=== PATIENT | male | born 1990 | race Caucasian/White ===

== ENCOUNTER 2017-10-28 12:10 | Emergency (ER) | payer SELFPAY ==
[~2017-10-28] VITALS: Ht 175.3 cm; Wt 68.0 kg
[2017-10-28] MEDS ORDERED: SODIUM CHLORIDE 0.9% 1,000 ML IV ONE (12:24)
[2017-10-28] MEDS ORDERED: SODIUM CHLORIDE 0.9% 1,000 ML IVB ONE (12:24)
[2017-10-28] MEDS: THIAMINE HCL 100 MG/ML 2ML VIAL IV ONE ×2 (12:30→12:33)
[2017-10-28 12:47] LABS: Basophils # (auto) 0 uL; Basophils % (auto) 0.4 % (0.0-2.0); Eosinophils # (auto) 0.1 uL; Eosinophils % (auto) 1.2 % (0.0-7.0); Hemoglobin 15.8 g/dL (13.5-17.5); Lymphocytes # (auto) 1.8 uL; Lymphocytes % (auto) 30.9 % (10.0-50.0); Mean Corpuscular Hemoglobin 33.3 pg (28.0-32.0); Mean Corpuscular Hgb Conc. 34.3 g/dL (32.0-36.0); Mean Corpuscular Volume 97.3 fL (80.0-100.0); Monocytes # (auto) 0.4 uL; Monocytes % (auto) 7.1 % (0.0-12.0); Neutrophils # (auto) 3.5 uL; Neutrophils % (auto) 60.4 % (37.0-80.0); Nucleated Red Blood Cells % 0.1 %; Platelet Count (auto) 314 10^3/uL (140-450); Red Blood Cells 4.73 10^6/uL (4.5-5.90); Red Cell Distribution Width 13.2 % (11.8-14.3); White Blood Cell 5.8 10^3/uL (4.4-10.8)
[2017-10-28 13:11] LABS: Albumin 4.1 g/dL (3.4-5.0); BUN/Creatinine Ratio 10.8; Bilirubin, Total 0.3 mg/dL (0.2-1.0); Calcium 8.4 mg/dL (8.5-10.1); Potassium 3.7 mmol/L (3.5-5.1); Total Protein 7.5 g/dL (6.4-8.2)
[2017-10-28] MEDS ORDERED: THIAMINE INJ 100 MG, MULTIPLE VITAMIN 10 ML, FOLIC ACID 1 MG, MAGNESIUM SULF SDV 50% 8 ... IV SCH ×5 (16:45)
[2017-10-28 17:15] VITALS: BP 121/75
== END 2017-10-28 21:44 | disposition left against medical advice (07) ==
LOC: ER 12:10 → EDBD 12:10 → ER 21:44
DX: G92 Toxic encephalopathy (principal); F10.120 Alcohol abuse with intoxication, uncomplicated
CPT/HCPCS: 36415; 70450; 71045; 80053; 80320; 85025; 96361; 96365; 96366; 99285; J3411; J3475; J7030

== ENCOUNTER 2017-11-12 11:28 | Emergency (ER) | payer SELFPAY ==
[~2017-11-12] VITALS: Ht 170.2 cm; Wt 63.5 kg
[2017-11-12] MEDS ORDERED: SODIUM CHLORIDE 0.9% 1,000 ML IVB ONE (11:43)
[2017-11-12 12:34] LABS: Basophils # (auto) 0 uL; Basophils % (auto) 0.2 % (0.0-2.0); Eosinophils # (auto) 0.1 uL; Eosinophils % (auto) 1.1 % (0.0-7.0); Hematocrit 47.1 % (41.0-53.0); Hemoglobin 15.9 g/dL (13.5-17.5); Lymphocytes # (auto) 2.5 uL; Lymphocytes % (auto) 40.7 % (10.0-50.0); Mean Corpuscular Hemoglobin 32.9 pg (28.0-32.0); Mean Corpuscular Hgb Conc. 33.9 g/dL (32.0-36.0); Mean Corpuscular Volume 97.2 fL (80.0-100.0); Monocytes # (auto) 0.3 uL; Monocytes % (auto) 5.7 % (0.0-12.0); Neutrophils # (auto) 3.1 uL; Neutrophils % (auto) 52.3 % (37.0-80.0); Nucleated Red Blood Cells % 0.1 %; Platelet Count (auto) 360 10^3/uL (140-450); Red Blood Cells 4.84 10^6/uL (4.5-5.90)
[2017-11-12 12:48] LABS: Albumin 4.3 g/dL (3.4-5.0); Calcium 8.5 mg/dL (8.5-10.1)
[2017-11-12 12:52] LABS: BUN/Creatinine Ratio 9.4
[2017-11-12 13:05] LABS: Bilirubin, Total 0.4 mg/dL (0.2-1.0); Total Protein 8.3 g/dL (6.4-8.2)
[2017-11-12 14:00] VITALS: BP 112/88
== END 2017-11-12 16:21 | disposition left against medical advice (07) ==
LOC: EDBD 11:28 → ER 11:28
DX: F10.120 Alcohol abuse with intoxication, uncomplicated (principal); Z53.29 Procedure and treatment not carried out because of patient's decision for other reasons
CPT/HCPCS: 36415; 80053; 80320; 85025; 94761; 96360; 96361; 99285; J7030

== ENCOUNTER 2017-12-24 17:20 | Emergency (ER) | payer SELFPAY ==
[~2017-12-24] VITALS: Ht 177.8 cm; Wt 72.6 kg
[2017-12-24] MEDS ORDERED: SODIUM CHLORIDE 0.9% 1,000 ML IV ONE (17:44)
[2017-12-24] MEDS ORDERED: LORazepam 2MG/ML-1ML VIAL IV ONE (18:30)
[2017-12-24 19:03] LABS: Basophils # (auto) 0.1 uL; Eosinophils # (auto) 0.1 uL; Hematocrit 43.6 % (41.0-53.0); Lymphocytes # (auto) 2.9 uL; Lymphocytes % (auto) 43.9 % (10.0-50.0); Mean Corpuscular Hemoglobin 33.5 pg (28.0-32.0); Mean Corpuscular Hgb Conc. 34.3 g/dL (32.0-36.0); Mean Corpuscular Volume 97.8 fL (80.0-100.0); Monocytes # (auto) 0.4 uL; Monocytes % (auto) 5.4 % (0.0-12.0); Neutrophils # (auto) 3.2 uL; Neutrophils % (auto) 47.7 % (37.0-80.0); Nucleated Red Blood Cells % 0.2 %; Platelet Count (auto) 301 10^3/uL (140-450); Red Blood Cells 4.46 10^6/uL (4.5-5.90); Red Cell Distribution Width 12.9 % (11.8-14.3); White Blood Cell 6.7 10^3/uL (4.4-10.8)
[2017-12-24 19:29] LABS: Albumin 4.3 g/dL (3.4-5.0); BUN/Creatinine Ratio 8.6; Bilirubin, Total 0.3 mg/dL (0.2-1.0); Calcium 8.8 mg/dL (8.5-10.1); Total Protein 8.4 g/dL (6.4-8.2)
[2017-12-24 19:30] VITALS: BP 125/68
[2017-12-24 19:32] LABS: Potassium 4.9 mmol/L (3.5-5.1)
== END 2017-12-24 21:03 | disposition home or self-care (01) ==
LOC: EDUNIT# 17:20 → EDBD 17:20 → ER 17:25
DX: F10.120 Alcohol abuse with intoxication, uncomplicated (principal)
CPT/HCPCS: 36415; 80053; 80320; 85025; 94761; 96374; 99284; J2060; J7030

== ENCOUNTER 2018-03-11 14:37 | Inpatient (IN) | payer MEDICAID, OTHER ==
[~2018-03-11] VITALS: Ht 160 cm; Wt 58.6 kg
[2018-03-11 15:23] LABS: Basophils # (auto) 0 uL; Eosinophils # (auto) 0.1 uL; Monocytes # (auto) 0.4 uL; Red Cell Distribution Width 13.3 % (11.8-14.3); White Blood Cell 6.3 10^3/uL (4.4-10.8)
[2018-03-11 15:26] LABS: Basophils % (auto) 0.3 % (0.0-2.0); Eosinophils % (auto) 1.6 % (0.0-7.0); Hematocrit 41.6 % (41.0-53.0); Hemoglobin 14.2 g/dL (13.5-17.5); Lymphocytes # (auto) 1.8 uL; Lymphocytes % (auto) 29.4 % (10.0-50.0); Mean Corpuscular Hemoglobin 34.4 pg (28.0-32.0); Mean Corpuscular Hgb Conc. 34.2 g/dL (32.0-36.0); Mean Corpuscular Volume 100.8 fL (80.0-100.0); Monocytes % (auto) 7.2 % (0.0-12.0); Neutrophils # (auto) 3.8 uL; Neutrophils % (auto) 61.5 % (37.0-80.0); Nucleated Red Blood Cells % 0.2 %; Platelet Count (auto) 311 10^3/uL (140-450); Red Blood Cells 4.13 10^6/uL (4.5-5.90)
[2018-03-11 15:33] LABS: Urine WBC None Seen /hpf (0 - 3)
[2018-03-11 15:43] LABS: Albumin 3.7 g/dL (3.4-5.0); BUN/Creatinine Ratio 8.4; Bilirubin, Total 0.2 mg/dL (0.2-1.0); Calcium 8.3 mg/dL (8.5-10.1); Potassium 3.5 mmol/L (3.5-5.1); Total Protein 7.4 g/dL (6.4-8.2)
[2018-03-11] MEDS ORDERED: SODIUM CHLORIDE 0.9% 1,000 ML IV ONE ×4 (15:56→17:10)
[2018-03-11] MEDS ORDERED: LIDOCAINE 1% (LOCAL ANESTH.) PF 5ml SDV ONE (15:56)
[2018-03-11 16:04] LABS: Amphetamine Screen, Urine NEGATIVE (NEGATIVE); Barbiturate Scree,Urine NEGATIVE (NEGATIVE); Benzodiazephine Screen, Urine NEGATIVE (NEGATIVE); Cannabinoid Screen, Urine NEGATIVE (NEGATIVE); Cocaine Screen, Urine NEGATIVE (NEGATIVE); Opiate Scree,Urine NEGATIVE (NEGATIVE); Phencyclidine Screen, Urine NEGATIVE (NEGATIVE)
[2018-03-11 16:26] LABS: Urine Bacteria NONE SEEN /hpf (None Seen); Urine Blood Negative /uL (Negative); Urine Specific Gravity 1.003 (1.001-1.035)
[2018-03-11] MEDS ORDERED: THIAMINE 100mg/ml INJ (200mg/2ml VIAL) IV ONE (17:15)
[2018-03-11] MEDS: SODIUM CHLORIDE 0.9% 1,000 ML IV SCH (17:43)
[2018-03-11] MEDS ORDERED: NITROGLYCERIN 0.4 MG SL TAB SL PRN (17:45)
[2018-03-11] MEDS ORDERED: MORPHINE SULF INJ 2 MG/ML SYRINGE 1ML IV PRN ×2 (17:45)
[2018-03-11] MEDS ORDERED: LORazepam 2MG/ML-1ML VIAL IV PRN (17:45)
[2018-03-11] MEDS ORDERED: ONDANSETRON HCL 4 MG/2 ML VIAL IV PRN (17:45)
[2018-03-11] MEDS ORDERED: ACETAMINOPHEN 325 MG TAB PO PRN (17:45)
[2018-03-11] MEDS ORDERED: THIAMINE INJ 100 MG, MULTIPLE VITAMIN 10 ML, FOLIC ACID 1 MG, MAGNESIUM SULF SDV 50% 8 ... IV ONE ×5 (17:45)
[2018-03-11] MEDS: GABAPENTIN 300 MG CAP PO SCH (20:49)
[2018-03-11] MEDS: chlordiazePOXIDE HCL 25 MG CAP PO PRN (20:49)
[2018-03-11 22:00] VITALS: BP 108/59
[2018-03-11 23:21] VITALS: BP 108/59
[2018-03-12] MEDS: SODIUM CHLORIDE 0.9% 1,000 ML IV SCH ×2 (00:23→10:23)
[2018-03-12 05:00] VITALS: BP 110/68
[2018-03-12] MEDS: GABAPENTIN 300 MG CAP PO SCH ×2 (05:18→14:00)
[2018-03-12] MEDS: chlordiazePOXIDE HCL 25 MG CAP PO PRN ×2 (05:19→11:47)
[2018-03-12 06:19] LABS: Basophils # (auto) 0 uL; Eosinophils # (auto) 0.1 uL; Lymphocytes # (auto) 1.9 uL; Monocytes # (auto) 0.4 uL; Neutrophils # (auto) 1.6 uL; Red Cell Distribution Width 13.2 % (11.8-14.3)
[2018-03-12 06:23] LABS: Basophils % (auto) 0.4 % (0.0-2.0); Eosinophils % (auto) 2.7 % (0.0-7.0); Hematocrit 39.1 % (41.0-53.0); Hemoglobin 13.4 g/dL (13.5-17.5); Lymphocytes % (auto) 47.5 % (10.0-50.0); Mean Corpuscular Hgb Conc. 34.3 g/dL (32.0-36.0); Neutrophils % (auto) 40.4 % (37.0-80.0); Nucleated Red Blood Cells % 0.1 %; Platelet Count (auto) 236 10^3/uL (140-450); Red Blood Cells 3.83 10^6/uL (4.5-5.90)
[2018-03-12 06:41] LABS: Albumin 3.3 g/dL (3.4-5.0); Calcium 7.6 mg/dL (8.5-10.1); Potassium 4.3 mmol/L (3.5-5.1)
[2018-03-12 06:43] LABS: BUN/Creatinine Ratio 6.8
[2018-03-12 06:45] LABS: Bilirubin, Total 0.3 mg/dL (0.2-1.0); Total Protein 6.3 g/dL (6.4-8.2)
[2018-03-12 09:00] VITALS: BP 111/58
[2018-03-12] MEDS ORDERED: MULTIPLE VITAMIN TAB PO SCH (10:00)
[2018-03-12 13:00] VITALS: BP 123/66
[2018-03-12 15:19] VITALS: BP 123/66
== END 2018-03-12 17:22 | disposition home or self-care (01) | DRG 775 ==
LOC: EDBD 14:37 → ER 14:37 → MERGE 14:38 → TELE 14:38 → TELE-WESTW 20:29
PROVIDERS: ADMIT Internal Medicine; ATTEND Internal Medicine
DX: F10.129 Alcohol abuse with intoxication, unspecified (principal); G92 Toxic encephalopathy; K70.9 Alcoholic liver disease, unspecified; F17.200 Nicotine dependence, unspecified, uncomplicated; Z59.0 Homelessness
CPT/HCPCS: 36415; 70450; 80053; 80307; 80320; 81001; 85025; 93005; 96365; 96366; 96375; J2405

== ENCOUNTER 2018-03-22 19:35 | Emergency (ER) | payer MEDICAID ==
[~2018-03-22] VITALS: Ht 170.2 cm; Wt 61.2 kg
[2018-03-22 20:18] VITALS: BP 146/86
[2018-03-22 21:41] LABS: Basophils # (auto) 0 uL; Basophils % (auto) 0.4 % (0.0-2.0); Eosinophils # (auto) 0.1 uL; Lymphocytes # (auto) 1.9 uL; Monocytes # (auto) 0.7 uL; Nucleated Red Blood Cells % 0.1 %; Red Blood Cells 4.16 10^6/uL (4.5-5.90); White Blood Cell 5.5 10^3/uL (4.4-10.8)
[2018-03-22 21:43] LABS: Eosinophils % (auto) 2.3 % (0.0-7.0); Hematocrit 42.2 % (41.0-53.0); Hemoglobin 14.6 g/dL (13.5-17.5); Lymphocytes % (auto) 34.2 % (10.0-50.0); Mean Corpuscular Hemoglobin 35.1 pg (28.0-32.0); Mean Corpuscular Hgb Conc. 34.6 g/dL (32.0-36.0); Mean Corpuscular Volume 101.5 fL (80.0-100.0); Monocytes % (auto) 12.9 % (0.0-12.0); Neutrophils # (auto) 2.7 uL; Neutrophils % (auto) 50.2 % (37.0-80.0); Platelet Count (auto) 188 10^3/uL (140-450); Red Cell Distribution Width 13.4 % (11.8-14.3)
[2018-03-22 21:54] LABS: Calcium 8.8 mg/dL (8.5-10.1); Potassium 3.6 mmol/L (3.5-5.1)
[2018-03-22 21:56] LABS: BUN/Creatinine Ratio 11.1
[2018-03-22 21:59] LABS: Bilirubin, Total 0.4 mg/dL (0.2-1.0); Total Protein 7.8 g/dL (6.4-8.2)
[2018-03-22 22:02] LABS: Urine WBC None Seen /hpf (0 - 3)
[2018-03-22 22:18] LABS: Urine Bacteria NONE SEEN /hpf (None Seen); Urine Blood Negative /uL (Negative); Urine Specific Gravity 1.002 (1.001-1.035)
[2018-03-22 22:31] LABS: Amphetamine Screen, Urine NEGATIVE (NEGATIVE); Barbiturate Scree,Urine NEGATIVE (NEGATIVE); Benzodiazephine Screen, Urine NEGATIVE (NEGATIVE); Cannabinoid Screen, Urine NEGATIVE (NEGATIVE); Cocaine Screen, Urine NEGATIVE (NEGATIVE); Opiate Scree,Urine NEGATIVE (NEGATIVE); Phencyclidine Screen, Urine NEGATIVE (NEGATIVE)
== END 2018-03-23 02:55 | disposition left against medical advice (07) ==
LOC: ER 19:35
DX: F10.239 Alcohol dependence with withdrawal, unspecified (principal); Z53.21 Procedure and treatment not carried out due to patient leaving prior to being seen by health care provider
CPT/HCPCS: 36415; 80053; 80307; 80320; 81001; 85025

== ENCOUNTER 2018-04-21 07:58 | Emergency (ER) | payer MEDICAID ==
[~2018-04-21] VITALS: Ht 170.2 cm; Wt 61.2 kg
[2018-04-21 08:11] VITALS: BP 152/96
[2018-04-21] MEDS ORDERED: cefTRIAXone SOD 1,000 MG VL IM ONE (10:45)
[2018-04-21] MEDS ORDERED: KETOROLAC TROMETH 60MG/2ML VIAL IM ONE (10:45)
[2018-04-21] MEDS ORDERED: LIDOCAINE 1% HCL (LOCAL ANESTH.) INJ 20ML MDV ONE (10:45)
[2018-04-21] MEDS ORDERED: cefTRIAXone SOD 1,000 MG VL ONE (10:45)
== END 2018-04-21 10:54 | disposition home or self-care (01) ==
LOC: ER 08:00
DX: S02.69XA Fracture of mandible of other specified site, initial encounter for closed fracture (principal); F17.210 Nicotine dependence, cigarettes, uncomplicated; Z59.0 Homelessness; Y08.89XA Assault by other specified means, initial encounter; Y93.89 Activity, other specified; Y99.8 Other external cause status; Y92.89 Other specified places as the place of occurrence of the external cause
CPT/HCPCS: 70486; 96372; 99284; J0696; J1885; J2001

== ENCOUNTER 2018-05-07 09:37 | Emergency (ER) | payer MEDICAID ==
[~2018-05-07] VITALS: Ht 170.2 cm; Wt 61.2 kg
[2018-05-07 09:45] VITALS: BP 148/85
[2018-05-07 10:30] LABS: Basophils # (auto) 0 uL; Basophils % (auto) 0.3 % (0.0-2.0); Eosinophils # (auto) 0 uL; Hemoglobin 14.9 g/dL (13.5-17.5); Lymphocytes # (auto) 1.9 uL; Monocytes # (auto) 0.5 uL
[2018-05-07 10:32] LABS: Eosinophils % (auto) 0.6 % (0.0-7.0); Hematocrit 43.4 % (41.0-53.0); Mean Corpuscular Hemoglobin 34.9 pg (28.0-32.0); Mean Corpuscular Hgb Conc. 34.4 g/dL (32.0-36.0); Mean Corpuscular Volume 101.4 fL (80.0-100.0); Monocytes % (auto) 7.4 % (0.0-12.0); Neutrophils % (auto) 62.7 % (37.0-80.0); Platelet Count (auto) 327 10^3/uL (140-450); Red Blood Cells 4.28 10^6/uL (4.5-5.90); Red Cell Distribution Width 12.9 % (11.8-14.3); White Blood Cell 6.4 10^3/uL (4.4-10.8)
[2018-05-07 11:03] LABS: Albumin 4.1 g/dL (3.4-5.0); BUN/Creatinine Ratio 10.5; Calcium 8.5 mg/dL (8.5-10.1)
[2018-05-07 11:06] LABS: Bilirubin, Total 0.8 mg/dL (0.2-1.0); Total Protein 8.5 g/dL (6.4-8.2)
== END 2018-05-07 13:12 | disposition home or self-care (01) ==
LOC: ER 09:37
DX: F41.9 Anxiety disorder, unspecified (principal); G47.00 Insomnia, unspecified; Z53.21 Procedure and treatment not carried out due to patient leaving prior to being seen by health care provider
CPT/HCPCS: 36415; 80053; 80320; 85025

== ENCOUNTER 2018-05-08 08:10 | Emergency (ER) | payer MEDICAID ==
[~2018-05-08] VITALS: Ht 170.2 cm; Wt 61.2 kg
[2018-05-08] MEDS ORDERED: SODIUM CHLORIDE 0.9% 1,000 ML IV ONE ×2 (08:30→08:35)
[2018-05-08] MEDS ORDERED: LORazepam 2MG/ML-1ML VIAL IV ONE (08:45)
[2018-05-08 08:48] LABS: Basophils # (auto) 0 uL; Eosinophils # (auto) 0.1 uL; Monocytes # (auto) 0.5 uL; White Blood Cell 6.9 10^3/uL (4.4-10.8)
[2018-05-08 08:49] LABS: Basophils % (auto) 0.3 % (0.0-2.0); Eosinophils % (auto) 1.5 % (0.0-7.0); Hemoglobin 16.1 g/dL (13.5-17.5); Lymphocytes # (auto) 2.3 uL; Lymphocytes % (auto) 33.2 % (10.0-50.0); Mean Corpuscular Hemoglobin 34.8 pg (28.0-32.0); Mean Corpuscular Hgb Conc. 34.3 g/dL (32.0-36.0); Mean Corpuscular Volume 101.5 fL (80.0-100.0); Monocytes % (auto) 7.2 % (0.0-12.0); Neutrophils % (auto) 57.8 % (37.0-80.0); Nucleated Red Blood Cells % 0.1 %; Platelet Count (auto) 352 10^3/uL (140-450); Red Blood Cells 4.63 10^6/uL (4.5-5.90); Red Cell Distribution Width 12.6 % (11.8-14.3)
[2018-05-08 08:51] LABS: Urine Bacteria NONE SEEN /hpf (None Seen); Urine Blood Negative /uL (Negative); Urine Specific Gravity 1.002 (1.001-1.035); Urine WBC <1 /hpf (0 - 3)
[2018-05-08 09:04] LABS: Albumin 4.3 g/dL (3.4-5.0); BUN/Creatinine Ratio 10.7; Calcium 8.4 mg/dL (8.5-10.1); Potassium 3.8 mmol/L (3.5-5.1)
[2018-05-08 09:05] LABS: Amphetamine Screen, Urine NEGATIVE (NEGATIVE); Barbiturate Scree,Urine NEGATIVE (NEGATIVE); Benzodiazephine Screen, Urine NEGATIVE (NEGATIVE); Cannabinoid Screen, Urine NEGATIVE (NEGATIVE); Cocaine Screen, Urine NEGATIVE (NEGATIVE); Opiate Scree,Urine NEGATIVE (NEGATIVE); Phencyclidine Screen, Urine NEGATIVE (NEGATIVE)
[2018-05-08 09:13] LABS: Bilirubin, Total 0.7 mg/dL (0.2-1.0); Total Protein 8.9 g/dL (6.4-8.2)
[2018-05-08 11:23] VITALS: BP 112/73
[2018-05-08] MEDS ORDERED: THIAMINE INJ 100 MG, MULTIPLE VITAMIN 10 ML, FOLIC ACID 1 MG, MAGNESIUM SULF SDV 50% 8 ... IV SCH ×5 (12:00)
== END 2018-05-08 12:40 | disposition home or self-care (01) ==
LOC: ER 08:11
DX: F10.239 Alcohol dependence with withdrawal, unspecified (principal); R53.1 Weakness; R61 Generalized hyperhidrosis; F17.210 Nicotine dependence, cigarettes, uncomplicated; F12.10 Cannabis abuse, uncomplicated; Z59.0 Homelessness
CPT/HCPCS: 36415; 80053; 80307; 80320; 81001; 83735; 84443; 85025; 96365; 96375; 99284; J2060; J3411; J3475; J7030

== ENCOUNTER 2018-11-24 17:35 | Emergency (ER) | payer MEDICAID ==
[~2018-11-24] VITALS: Ht 177.8 cm; Wt 65.8 kg
[2018-11-24] MEDS ORDERED: SODIUM CHLORIDE 0.9% 1,000 ML IV ONE (17:46)
[2018-11-24 18:43] LABS: Potassium 3.9 mmol/L (3.5-5.1)
[2018-11-24 18:46] LABS: Calcium 7.6 mg/dL (8.5-10.1)
[2018-11-24 18:49] LABS: BUN/Creatinine Ratio 9.3
[2018-11-24 18:51] LABS: Basophils # (auto) 0 uL; Basophils % (auto) 0.1 % (0.0-2.0); Eosinophils # (auto) 0 uL; Eosinophils % (auto) 0.9 % (0.0-7.0); Hematocrit 42.1 % (41.0-53.0); Hemoglobin 14.5 g/dL (13.5-17.5); Lymphocytes # (auto) 1.9 uL; Lymphocytes % (auto) 45.4 % (10.0-50.0); Mean Corpuscular Hemoglobin 33.6 pg (28.0-32.0); Mean Corpuscular Hgb Conc. 34.5 g/dL (32.0-36.0); Mean Corpuscular Volume 97.2 fL (80.0-100.0); Monocytes # (auto) 0.2 uL; Monocytes % (auto) 5.8 % (0.0-12.0); Neutrophils % (auto) 47.8 % (37.0-80.0); Nucleated Red Blood Cells % 0.1 %; Platelet Count (auto) 245 10^3/uL (140-450); Red Blood Cells 4.33 10^6/uL (4.5-5.90); Red Cell Distribution Width 12.6 % (11.8-14.3); White Blood Cell 4.2 10^3/uL (4.4-10.8)
[2018-11-24 18:52] LABS: Bilirubin, Total 0.5 mg/dL (0.2-1.0); Total Protein 7.4 g/dL (6.4-8.2)
[2018-11-24 20:30] VITALS: BP 123/77
== END 2018-11-24 21:50 | disposition left against medical advice (07) ==
LOC: ER 17:35 → EDBD 17:35 → ER 21:50
DX: S09.90XA Unspecified injury of head, initial encounter (principal); F10.229 Alcohol dependence with intoxication, unspecified; F17.210 Nicotine dependence, cigarettes, uncomplicated; F12.90 Cannabis use, unspecified, uncomplicated; Z59.0 Homelessness; X58.XXXA Exposure to other specified factors, initial encounter; Y93.89 Activity, other specified; Y99.8 Other external cause status; Y92.89 Other specified places as the place of occurrence of the external cause
CPT/HCPCS: 36415; 70450; 80053; 80320; 85025; 94761; 99284; J7030

== ENCOUNTER 2019-10-22 05:19 | Emergency (ER) | payer MEDICAID ==
[~2019-10-22] VITALS: Ht 170.2 cm; Wt 63.5 kg
[2019-10-22 06:09] LABS: Urine Bacteria FEW /hpf (None Seen); Urine Blood Negative /uL (Negative); Urine Mucus FEW (None Seen); Urine Specific Gravity 1.028 (1.001-1.035); Urine WBC <1 /hpf (0 - 3)
[2019-10-22 06:29] LABS: Basophils # (auto) 0 10 ^3/uL (0-0.2); Basophils % (auto) 0.5 % (0.0-2.0); Eosinophils # (auto) 0 10 ^3/uL (0-0.8); Eosinophils % (auto) 0.3 % (0.0-7.0); Hematocrit 40.9 % (41.0-53.0); Lymphocytes # (auto) 1.3 10 ^3/uL (0.4-5.4); Lymphocytes % (auto) 18.9 % (10.0-50.0); Mean Corpuscular Hemoglobin 32.7 pg (28.0-32.0); Mean Corpuscular Hgb Conc. 34.3 g/dL (32.0-36.0); Mean Corpuscular Volume 95.3 fL (80.0-100.0); Monocytes # (auto) 0.6 10 ^3/uL (0-1.3); Monocytes % (auto) 9.2 % (0.0-12.0); Neutrophils % (auto) 71.1 % (37.0-80.0); Nucleated Red Blood Cells % 0.2 %; Platelet Count (auto) 263 10^3/uL (140-450); Red Cell Distribution Width 12.5 % (11.8-14.3)
[2019-10-22 06:40] LABS: Amphetamine Screen, Urine POSITIVE (NEGATIVE); Barbiturate Scree,Urine NEGATIVE (NEGATIVE); Benzodiazephine Screen, Urine NEGATIVE (NEGATIVE); Cannabinoid Screen, Urine NEGATIVE (NEGATIVE); Opiate Scree,Urine NEGATIVE (NEGATIVE); Phencyclidine Screen, Urine NEGATIVE (NEGATIVE)
[2019-10-22 06:47] LABS: Cocaine Screen, Urine NEGATIVE (NEGATIVE)
[2019-10-22 06:49] LABS: Albumin 3.9 g/dL (3.4-5.0); Calcium 8.2 mg/dL (8.5-10.1); Potassium 3.3 mmol/L (3.5-5.1)
[2019-10-22 06:55] LABS: BUN/Creatinine Ratio 15.5; Bilirubin, Total 1.4 mg/dL (0.2-1.0); Total Protein 7.4 g/dL (6.4-8.2)
[2019-10-22] MEDS ORDERED: POTASSIUM EFFERVESENT TAB 25 MEQ PO ONE (07:45)
[2019-10-22 07:56] VITALS: BP 126/75
== END 2019-10-22 08:01 | disposition home or self-care (01) ==
LOC: ER 05:19
DX: J02.9 Acute pharyngitis, unspecified (principal); F15.10 Other stimulant abuse, uncomplicated; E87.6 Hypokalemia; F10.129 Alcohol abuse with intoxication, unspecified; Y90.3 Blood alcohol level of 60-79 mg/100 ml
CPT/HCPCS: 36415; 80053; 80307; 81001; 85025; 87070; 87880

== ENCOUNTER 2019-12-29 20:33 | Emergency (ER) | payer MEDICAID ==
[~2019-12-29] VITALS: Ht 170.2 cm; Wt 63.5 kg
[2019-12-29 23:12] LABS: Basophils # (auto) 0.1 10 ^3/uL (0-0.2); Basophils % (auto) 0.6 % (0.0-2.0); Eosinophils # (auto) 0.1 10 ^3/uL (0-0.8); Hematocrit 43.6 % (41.0-53.0); Lymphocytes # (auto) 2.5 10 ^3/uL (0.4-5.4); Lymphocytes % (auto) 25.9 % (10.0-50.0); Mean Corpuscular Hemoglobin 33.5 pg (28.0-32.0); Mean Corpuscular Hgb Conc. 34.3 g/dL (32.0-36.0); Mean Corpuscular Volume 97.7 fL (80.0-100.0); Monocytes # (auto) 0.6 10 ^3/uL (0-1.3); Monocytes % (auto) 5.9 % (0.0-12.0); Neutrophils # (auto) 6.4 10 ^3/uL (1.6-8.6); Neutrophils % (auto) 66.6 % (37.0-80.0); Nucleated Red Blood Cells % 0.1 %; Platelet Count (auto) 324 10^3/uL (140-450); Red Blood Cells 4.47 10^6/uL (4.5-5.90); Red Cell Distribution Width 12.8 % (11.8-14.3); White Blood Cell 9.6 10^3/uL (4.4-10.8)
[2019-12-29 23:33] LABS: Albumin 4.5 g/dL (3.4-5.0); Calcium 8.3 mg/dL (8.5-10.1)
[2019-12-29 23:35] LABS: BUN/Creatinine Ratio 7.4
[2019-12-29 23:37] LABS: Bilirubin, Total 0.9 mg/dL (0.2-1.0); Total Protein 8.3 g/dL (6.4-8.2)
[2019-12-30] MEDS ORDERED: FOLIC ACID 1 MG TAB PO ONE (02:00)
[2019-12-30] MEDS ORDERED: SODIUM CHLORIDE 0.9% 1,000 ML IV ONE (02:00)
[2019-12-30] MEDS ORDERED: MULTIPLE VITAMIN TAB PO ONE (02:00)
[2019-12-30] MEDS ORDERED: chlordiazePOXIDE HCL 25 MG CAP PO ONE (02:00)
[2019-12-30] MEDS ORDERED: THIAMINE 100mg/ml INJ (200mg/2ml VIAL) IV ONE (02:00)
[2019-12-30 02:20] LABS: Urine WBC None Seen /hpf (0 - 3)
[2019-12-30 02:49] LABS: Urine Bacteria NONE SEEN /hpf (None Seen); Urine Blood Negative /uL (Negative); Urine Specific Gravity 1.009 (1.001-1.035)
[2019-12-30 03:00] LABS: Amphetamine Screen, Urine NEGATIVE (NEGATIVE); Barbiturate Scree,Urine NEGATIVE (NEGATIVE); Benzodiazephine Screen, Urine NEGATIVE (NEGATIVE); Cannabinoid Screen, Urine NEGATIVE (NEGATIVE); Cocaine Screen, Urine NEGATIVE (NEGATIVE); Opiate Scree,Urine NEGATIVE (NEGATIVE); Phencyclidine Screen, Urine NEGATIVE (NEGATIVE)
[2019-12-30 05:47] VITALS: BP 114/80
== END 2019-12-30 06:15 | disposition home or self-care (01) ==
LOC: ER 20:38
DX: F10.129 Alcohol abuse with intoxication, unspecified (principal)
CPT/HCPCS: 36415; 80053; 80307; 80320; 81001; 85025; 96374; 99284; J3411

== ENCOUNTER 2020-01-12 13:50 | Emergency (ER) | payer MEDICAID ==
[~2020-01-12] VITALS: Ht 170.2 cm; Wt 63.5 kg
[2020-01-12 14:09] VITALS: BP 132/63
[2020-01-12] MEDS ORDERED: chlordiazePOXIDE HCL 25 MG CAP PO ONE (14:15)
== END 2020-01-12 14:31 | disposition home or self-care (01) ==
LOC: ER 13:50
DX: F10.239 Alcohol dependence with withdrawal, unspecified (principal); F12.10 Cannabis abuse, uncomplicated; F15.10 Other stimulant abuse, uncomplicated; Z87.891 Personal history of nicotine dependence; Z59.0 Homelessness; Y90.9 Presence of alcohol in blood, level not specified

== ENCOUNTER 2020-01-29 18:00 | Emergency (ER) | payer MEDICAID | END 2020-01-29 18:15 | disposition left against medical advice (07) | LOC: ER 18:00 | DX: T50.905A Adverse effect of unspecified drugs, medicaments and biological substances, initial encounter (principal); Z53.21 Procedure and treatment not carried out due to patient leaving prior to being seen by health care provider ==

== ENCOUNTER 2020-01-29 20:28 | Emergency (ER) | payer MEDICAID ==
[~2020-01-29] VITALS: Ht 170.2 cm; Wt 63.5 kg
[2020-01-29] MEDS ORDERED: FOLIC ACID 1 MG, MULTIPLE VITAMIN 10 ML, MAGNESIUM SULF SDV 50% 8 MEQ, THIAMINE INJ 100... INJ SCH ×5 (22:45)
[2020-01-29] MEDS ORDERED: LORazepam 2MG/ML-1ML VIAL IV ONE (22:45)
[2020-01-29] MEDS ORDERED: THIAMINE 100mg/ml INJ (200mg/2ml VIAL) IV ONE (22:45)
[2020-01-29 22:52] LABS: Urine Bacteria NONE SEEN /hpf (None Seen); Urine Blood Negative /uL (Negative); Urine Specific Gravity 1.007 (1.001-1.035); Urine WBC 2 /hpf (0 - 3)
[2020-01-29 23:13] LABS: Basophils # (auto) 0.1 10 ^3/uL (0-0.2); Basophils % (auto) 0.8 % (0.0-2.0); Eosinophils # (auto) 0 10 ^3/uL (0-0.8); Eosinophils % (auto) 0.2 % (0.0-7.0); Hematocrit 44.9 % (41.0-53.0); Hemoglobin 15.4 g/dL (13.5-17.5); Lymphocytes # (auto) 2.1 10 ^3/uL (0.4-5.4); Lymphocytes % (auto) 26.2 % (10.0-50.0); Mean Corpuscular Hemoglobin 33.6 pg (28.0-32.0); Mean Corpuscular Hgb Conc. 34.2 g/dL (32.0-36.0); Mean Corpuscular Volume 98.2 fL (80.0-100.0); Monocytes # (auto) 0.6 10 ^3/uL (0-1.3); Neutrophils # (auto) 5.2 10 ^3/uL (1.6-8.6); Neutrophils % (auto) 65.8 % (37.0-80.0); Nucleated Red Blood Cells % 0.1 %; Platelet Count (auto) 259 10^3/uL (140-450); Red Blood Cells 4.57 10^6/uL (4.5-5.90); Red Cell Distribution Width 12.8 % (11.8-14.3); White Blood Cell 7.9 10^3/uL (4.4-10.8)
[2020-01-29 23:20] LABS: Amphetamine Screen, Urine NEGATIVE (NEGATIVE); Barbiturate Scree,Urine NEGATIVE (NEGATIVE); Benzodiazephine Screen, Urine NEGATIVE (NEGATIVE); Cannabinoid Screen, Urine NEGATIVE (NEGATIVE); Cocaine Screen, Urine NEGATIVE (NEGATIVE); Opiate Scree,Urine NEGATIVE (NEGATIVE); Phencyclidine Screen, Urine NEGATIVE (NEGATIVE)
[2020-01-29 23:26] LABS: Albumin 4.5 g/dL (3.4-5.0); BUN/Creatinine Ratio 5.2; Calcium 8.5 mg/dL (8.5-10.1); Magnesium 1.9 mg/dL (1.6-2.6); Potassium 3.4 mmol/L (3.5-5.1)
[2020-01-29 23:29] LABS: Bilirubin, Total 0.8 mg/dL (0.2-1.0); Total Protein 8.1 g/dL (6.4-8.2)
[2020-01-30] MEDS ORDERED: MVI in SODIUM CHLORIDE 0.9% 1,010 ML ONE (00:04)
[2020-01-30] MEDS ORDERED: SODIUM CHLORIDE 0.9% 1,000 ML IV ONE (02:00)
[2020-01-30] MEDS ORDERED: POTASSIUM CHL 20 Meq TABLET PO ONE (03:30)
[2020-01-30 06:00] VITALS: BP 118/66
== END 2020-01-30 06:58 | disposition home or self-care (01) ==
LOC: ER 20:29
DX: F10.129 Alcohol abuse with intoxication, unspecified (principal); F41.9 Anxiety disorder, unspecified; F20.9 Schizophrenia, unspecified; E87.6 Hypokalemia; R74.8 Abnormal levels of other serum enzymes; Y90.8 Blood alcohol level of 240 mg/100 ml or more
CPT/HCPCS: 36415; 80053; 80307; 80320; 81001; 83735; 85025; 96365; 96366; 96375; 99285; J2060; J3411; J3475; J7030

== ENCOUNTER 2020-03-29 19:57 | Emergency (ER) | payer MEDICAID ==
[~2020-03-29] VITALS: Ht 170.2 cm; Wt 61.2 kg
[2020-03-29 21:04] VITALS: BP 134/86
== END 2020-03-29 21:18 | disposition home or self-care (01) ==
LOC: ER 19:57
DX: F10.239 Alcohol dependence with withdrawal, unspecified (principal)

== ENCOUNTER 2020-04-05 12:37 | Emergency (ER) | payer MEDICAID ==
[~2020-04-05] VITALS: Ht 170.2 cm; Wt 63.5 kg
[2020-04-05] MEDS ORDERED: SODIUM CHLORIDE 0.9% 1,000 ML IV ONE ×2 (12:41)
[2020-04-05] MEDS ORDERED: THIAMINE 100mg/ml INJ (200mg/2ml VIAL) IV ONE (12:45)
[2020-04-05 16:07] VITALS: BP 135/84
== END 2020-04-05 17:01 | disposition home or self-care (01) ==
LOC: ER 12:37
DX: F10.129 Alcohol abuse with intoxication, unspecified (principal); E86.0 Dehydration; Y90.9 Presence of alcohol in blood, level not specified
CPT/HCPCS: 71045; 96361; 96374; 99283; J3411; J7030

== ENCOUNTER 2020-04-06 05:33 | Emergency (ER) | payer MEDICAID ==
[~2020-04-06] VITALS: Ht 170.2 cm; Wt 63.5 kg
[2020-04-06 07:21] LABS: Basophils # (auto) 0.1 10 ^3/uL (0-0.2); Eosinophils # (auto) 0 10 ^3/uL (0-0.8); Hemoglobin 14.3 g/dL (13.5-17.5); Lymphocytes # (auto) 1.5 10 ^3/uL (0.4-5.4); Mean Corpuscular Volume 101.1 fL (80.0-100.0); Monocytes # (auto) 0.5 10 ^3/uL (0-1.3); Neutrophils # (auto) 1.6 10 ^3/uL (1.6-8.6); Neutrophils % (auto) 44.2 % (37.0-80.0)
[2020-04-06 07:23] LABS: Basophils % (auto) 1.6 % (0.0-2.0); Eosinophils % (auto) 0.7 % (0.0-7.0); Hematocrit 41.1 % (41.0-53.0); Lymphocytes % (auto) 40.3 % (10.0-50.0); Mean Corpuscular Hgb Conc. 34.7 g/dL (32.0-36.0); Monocytes % (auto) 13.2 % (0.0-12.0); Nucleated Red Blood Cells % 0.3 %; Platelet Count (auto) 261 10^3/uL (140-450); Red Blood Cells 4.07 10^6/uL (4.5-5.90); Red Cell Distribution Width 13.8 % (11.8-14.3); White Blood Cell 3.6 10^3/uL (4.4-10.8)
[2020-04-06 07:38] LABS: Urine Bacteria FEW /hpf (None Seen); Urine Blood Negative /uL (Negative); Urine Specific Gravity 1.006 (1.001-1.035); Urine WBC <1 /hpf (0 - 3)
[2020-04-06 07:50] LABS: Albumin 4.2 g/dL (3.4-5.0); Anion Gap 7 (5-15); Blood Urea Nitrogen 5 mg/dL (7-18); Calcium 8.6 mg/dL (8.5-10.1); Carbon Dioxide 26 mmol/L (21-32); Chloride 104 mmol/L (98-107); Potassium 3.8 mmol/L (3.5-5.1); Sodium 137 mmol/L (136-145)
[2020-04-06 07:53] LABS: Alanine Aminotransferase 338 U/L (16-61); Aspartate Aminotransferase 222 U/L (15-37); GFR African American 112 mL/min; GFR Non-African American 93 mL/min; Glucose 97 mg/dL (74-106)
[2020-04-06 07:58] LABS: Alkaline Phosphatase 96 U/L (45-117); Bilirubin, Total 0.5 mg/dL (0.2-1.0); Total Protein 7.9 g/dL (6.4-8.2)
[2020-04-06 07:58] LABS: Amphetamine Screen, Urine NEGATIVE (NEGATIVE); Barbiturate Scree,Urine NEGATIVE (NEGATIVE); Benzodiazephine Screen, Urine NEGATIVE (NEGATIVE); Cannabinoid Screen, Urine NEGATIVE (NEGATIVE); Cocaine Screen, Urine NEGATIVE (NEGATIVE); Opiate Scree,Urine NEGATIVE (NEGATIVE); Phencyclidine Screen, Urine NEGATIVE (NEGATIVE)
[2020-04-06] MEDS ORDERED: SODIUM CHLORIDE 0.9% 2,000 ML IV ONE (08:00)
[2020-04-06] MEDS ORDERED: LORazepam 2MG/ML-1ML VIAL IV ONE (08:00)
[2020-04-06 08:23] VITALS: BP 121/63
== END 2020-04-06 10:30 | disposition home or self-care (01) ==
LOC: ER 05:33
DX: F10.239 Alcohol dependence with withdrawal, unspecified (principal); K70.9 Alcoholic liver disease, unspecified; F20.9 Schizophrenia, unspecified; Z87.891 Personal history of nicotine dependence
CPT/HCPCS: 36415; 80053; 80307; 80320; 81001; 84484; 85025; 96361; 96374; 99284; J2060; 93005

== ENCOUNTER 2020-04-15 11:14 | Emergency (ER) | payer MEDICAID ==
[~2020-04-15] VITALS: Ht 170.2 cm; Wt 63.5 kg
[2020-04-15 11:23] VITALS: BP 143/101
== END 2020-04-15 11:54 | disposition home or self-care (01) ==
LOC: ER 11:14
DX: T63.481A Toxic effect of venom of other arthropod, accidental (unintentional), initial encounter (principal); Y92.89 Other specified places as the place of occurrence of the external cause

== ENCOUNTER 2020-04-17 09:09 | Emergency (ER) | payer MEDICAID ==
[~2020-04-17] VITALS: Ht 170.2 cm; Wt 63.5 kg
[2020-04-17 09:28] VITALS: BP 134/77
[2020-04-17] MEDS ORDERED: KETOROLAC TROMETH 60MG/2ML VIAL IM ONE (10:45)
== END 2020-04-17 11:10 | disposition home or self-care (01) ==
LOC: ER 09:09
DX: S29.012A Strain of muscle and tendon of back wall of thorax, initial encounter (principal); F20.9 Schizophrenia, unspecified; Z87.891 Personal history of nicotine dependence; X58.XXXA Exposure to other specified factors, initial encounter; Y93.89 Activity, other specified; Y92.89 Other specified places as the place of occurrence of the external cause; Y99.8 Other external cause status
CPT/HCPCS: 96372; 99283; J1885

== ENCOUNTER 2020-04-18 12:28 | Emergency (ER) | payer MEDICAID ==
[~2020-04-18] VITALS: Ht 170.2 cm; Wt 65.8 kg
[2020-04-18 13:14] LABS: Basophils # (auto) 0 10 ^3/uL (0-0.2); Eosinophils # (auto) 0.1 10 ^3/uL (0-0.8); Neutrophils # (auto) 1.8 10 ^3/uL (1.6-8.6); White Blood Cell 4.2 10^3/uL (4.4-10.8)
[2020-04-18 13:16] LABS: Basophils % (auto) 0.5 % (0.0-2.0); Eosinophils % (auto) 2.3 % (0.0-7.0); Hematocrit 43.3 % (41.0-53.0); Hemoglobin 15.3 g/dL (13.5-17.5); Lymphocytes # (auto) 1.8 10 ^3/uL (0.4-5.4); Lymphocytes % (auto) 44.2 % (10.0-50.0); Mean Corpuscular Hemoglobin 35.2 pg (28.0-32.0); Mean Corpuscular Hgb Conc. 35.4 g/dL (32.0-36.0); Mean Corpuscular Volume 99.4 fL (80.0-100.0); Monocytes # (auto) 0.4 10 ^3/uL (0-1.3); Monocytes % (auto) 10.1 % (0.0-12.0); Neutrophils % (auto) 42.9 % (37.0-80.0); Nucleated Red Blood Cells % 0.1 %; Platelet Count (auto) 318 10^3/uL (140-450); Red Blood Cells 4.35 10^6/uL (4.5-5.90); Red Cell Distribution Width 13.4 % (11.8-14.3)
[2020-04-18 13:38] LABS: Albumin 4.5 g/dL (3.4-5.0); Calcium 8.7 mg/dL (8.5-10.1); Potassium 3.6 mmol/L (3.5-5.1)
[2020-04-18 13:44] LABS: BUN/Creatinine Ratio 5.5; Total Protein 8.3 g/dL (6.4-8.2)
[2020-04-18] MEDS ORDERED: SODIUM CHLORIDE 0.9% 1,000 ML IV ONE (14:00)
[2020-04-18] MEDS ORDERED: SODIUM CHLORIDE 0.9% 1,000 ML IVB ONE (17:58)
[2020-04-18] MEDS ORDERED: FOLIC ACID 1 MG, MULTIPLE VITAMIN 10 ML, MAGNESIUM SULF SDV 50% 8 MEQ, THIAMINE INJ 100... INJ STA ×5 (18:14)
[2020-04-18] MEDS ORDERED: THIAMINE HCL 100 MG TAB PO ONE (18:15)
[2020-04-19 04:00] VITALS: BP 108/62
== END 2020-04-19 05:36 | disposition home or self-care (01) ==
LOC: ER 12:28
DX: F10.229 Alcohol dependence with intoxication, unspecified (principal); Y90.8 Blood alcohol level of 240 mg/100 ml or more; R79.89 Other specified abnormal findings of blood chemistry; F20.9 Schizophrenia, unspecified; Z87.891 Personal history of nicotine dependence
CPT/HCPCS: 36415; 71045; 80053; 80320; 85025; 96361; 96365; 99285; J3411; J3475; J7030

== ENCOUNTER → 2020-04-18 | Emergency (ER) | payer MEDICAID | END | disposition home or self-care (01) | LOC: ER 22:50 | DX: F10.920 Alcohol use, unspecified with intoxication, uncomplicated (principal); Z53.21 Procedure and treatment not carried out due to patient leaving prior to being seen by health care provider ==

== ENCOUNTER → 2020-04-22 | Emergency (ER) | payer MEDICAID ==
[~2020-04-22] VITALS: Ht 170.2 cm; Wt 65.8 kg
[~2020-04-22] MED LIST: POTASSIUM EFFERVESENT TAB 25 MEQ PO ONE; SODIUM CHLORIDE 0.9% 1,000 ML IV ONE; chlordiazePOXIDE HCL 5 MG CAP PO ONE
[2020-04-22 03:18] LABS: Urine WBC None Seen /hpf (0 - 3)
[2020-04-22 03:34] LABS: Urine Bacteria FEW /hpf (None Seen); Urine Blood Negative /uL (Negative); Urine Specific Gravity 1.002 (1.001-1.035)
[2020-04-22 03:47] LABS: Amphetamine Screen, Urine NEGATIVE (NEGATIVE); Barbiturate Scree,Urine NEGATIVE (NEGATIVE); Benzodiazephine Screen, Urine POSITIVE (NEGATIVE); Cannabinoid Screen, Urine NEGATIVE (NEGATIVE); Cocaine Screen, Urine NEGATIVE (NEGATIVE); Opiate Scree,Urine NEGATIVE (NEGATIVE); Phencyclidine Screen, Urine NEGATIVE (NEGATIVE)
[2020-04-22 03:53] LABS: White Blood Cell 4.1 10^3/uL (4.4-10.8)
[2020-04-22 03:54] LABS: Hematocrit 40.5 % (41.0-53.0); Hemoglobin 14.4 g/dL (13.5-17.5); Mean Corpuscular Hemoglobin 35.5 pg (28.0-32.0); Mean Corpuscular Hgb Conc. 35.6 g/dL (32.0-36.0); Mean Corpuscular Volume 99.6 fL (80.0-100.0); Platelet Count (auto) 201 10^3/uL (140-450); Red Blood Cells 4.06 10^6/uL (4.5-5.90); Red Cell Distribution Width 13.5 % (11.8-14.3)
[2020-04-22 03:56] LABS: Band Neutrophils % (manual) 0; Basophils % (manual) 0 (0.0-2.0); Blast Cells 0; Metamyelocytes % 0; Myelocytes % 0; Promyelocytes % 0; Reactive Lymphocytes 0
[2020-04-22 04:02] LABS: Albumin 3.9 g/dL (3.4-5.0); Anion Gap 7 (5-15); Blood Urea Nitrogen 5 mg/dL (7-18); Carbon Dioxide 30 mmol/L (21-32); Chloride 103 mmol/L (98-107); Glucose 89 mg/dL (74-106); Magnesium 2.2 mg/dL (1.6-2.6); Potassium 3.2 mmol/L (3.5-5.1); Sodium 140 mmol/L (136-145)
[2020-04-22 05:32] LABS: Alanine Aminotransferase 122 U/L (16-61); Alkaline Phosphatase 101 U/L (45-117); Aspartate Aminotransferase 168 U/L (15-37); BUN/Creatinine Ratio 6.2; Bilirubin, Total 0.9 mg/dL (0.2-1.0); GFR African American 145 mL/min; GFR Non-African American 120 mL/min; Total Protein 7.6 g/dL (6.4-8.2)
[2020-04-22 06:21] LABS: Eosinophils % (manual) 2 (0-7); Lymphocytes % (manual) 56 (10.0-50.0); Monocytes % (manual) 7 (0-12)
[2020-04-22 08:01] VITALS: BP 120/77
== END | disposition home or self-care (01) ==
LOC: ER 02:16
DX: R07.89 Other chest pain (principal); E87.6 Hypokalemia; F10.129 Alcohol abuse with intoxication, unspecified; Z59.0 Homelessness; Z87.891 Personal history of nicotine dependence; Y90.9 Presence of alcohol in blood, level not specified
CPT/HCPCS: 36415; 71045; 80053; 80307; 81001; 83735; 84484; 85007; 85027; 93005; 96360

== ENCOUNTER 2020-05-04 16:32 | Emergency (ER) | payer MEDICAID ==
[~2020-05-04] VITALS: Ht 177.8 cm; Wt 63.5 kg
[2020-05-04 16:38] VITALS: BP 108/74
[2020-05-04] MEDS ORDERED: SODIUM CHLORIDE 0.9% 1,000 ML IV ONE (16:45)
== END 2020-05-04 18:45 | disposition left against medical advice (07) ==
LOC: ER 16:32 → EDBD 16:32 → ER 18:45
DX: F10.920 Alcohol use, unspecified with intoxication, uncomplicated (principal); Z87.891 Personal history of nicotine dependence

== ENCOUNTER 2020-06-27 14:21 | Emergency (ER) | payer MEDICAID ==
[~2020-06-27] VITALS: Ht 152.4 cm; Wt 68.0 kg
[2020-06-27] MEDS ORDERED: LORazepam MDV 2MG/ML 50 MG in SODIUM CHL 0.9% 25 ML IV ONE (14:45)
[2020-06-27] MEDS ORDERED: LORazepam 2MG/ML-1ML VIAL IV ONE (15:15)
[2020-06-27] MEDS ORDERED: FOLIC ACID 1 MG, MULTIPLE VITAMIN 10 ML, MAGNESIUM SULF SDV 50% 8 MEQ, THIAMINE INJ 100... INJ ONE ×5 (15:15)
[2020-06-27 15:38] LABS: Basophils # (auto) 0 10 ^3/uL (0-0.2); Eosinophils # (auto) 0 10 ^3/uL (0-0.8); Nucleated Red Blood Cells % 0.1 %; Red Cell Distribution Width 12.4 % (11.8-14.3); White Blood Cell 6.2 10^3/uL (4.4-10.8)
[2020-06-27 15:41] LABS: Basophils % (auto) 0.7 % (0.0-2.0); Eosinophils % (auto) 0.1 % (0.0-7.0); Hematocrit 42.5 % (41.0-53.0); Hemoglobin 14.9 g/dL (13.5-17.5); Lymphocytes % (auto) 32.4 % (10.0-50.0); Mean Corpuscular Hemoglobin 35.1 pg (28.0-32.0); Mean Corpuscular Volume 100.3 fL (80.0-100.0); Monocytes # (auto) 0.3 10 ^3/uL (0-1.3); Monocytes % (auto) 5.6 % (0.0-12.0); Neutrophils # (auto) 3.8 10 ^3/uL (1.6-8.6); Neutrophils % (auto) 61.2 % (37.0-80.0); Platelet Count (auto) 267 10^3/uL (140-450); Red Blood Cells 4.23 10^6/uL (4.5-5.90)
[2020-06-27 15:59] LABS: Albumin 4.5 g/dL (3.4-5.0); Calcium 8.5 mg/dL (8.5-10.1); Potassium 3.7 mmol/L (3.5-5.1)
[2020-06-27 16:04] LABS: BUN/Creatinine Ratio 11.8; Bilirubin, Total 0.4 mg/dL (0.2-1.0); Total Protein 8.4 g/dL (6.4-8.2)
[2020-06-27 21:03] VITALS: BP 110/59
[2020-06-28] MEDS ORDERED: FOLIC ACID 1 MG, MULTIPLE VITAMIN 10 ML, MAGNESIUM SULF SDV 50% 8 MEQ, THIAMINE INJ 100... INJ SCH ×5 (12:00)
== END 2020-06-27 21:07 | disposition home or self-care (01) ==
LOC: EDBD 14:21 → ER 14:21
DX: G92 Toxic encephalopathy (principal); F10.129 Alcohol abuse with intoxication, unspecified; R45.1 Restlessness and agitation; Z87.891 Personal history of nicotine dependence; Y90.8 Blood alcohol level of 240 mg/100 ml or more
CPT/HCPCS: 36415; 80053; 80320; 85025; 96365; 96366; 96375; 99284; J2060; J3411; J3475; J7030

== ENCOUNTER 2020-08-25 02:51 | Emergency (ER) | payer MEDICAID ==
[~2020-08-25] VITALS: Ht 170.2 cm; Wt 68.0 kg
[2020-08-25 05:48] LABS: Basophils # (auto) 0.1 10 ^3/uL (0-0.2); Basophils % (auto) 3.6 % (0.0-2.0); Eosinophils # (auto) 0 10 ^3/uL (0-0.8); Eosinophils % (auto) 0.3 % (0.0-7.0); Hematocrit 37.7 % (41.0-53.0); Hemoglobin 13.1 g/dL (13.5-17.5); Lymphocytes # (auto) 1.1 10 ^3/uL (0.4-5.4); Lymphocytes % (auto) 39.7 % (10.0-50.0); Mean Corpuscular Hemoglobin 33.9 pg (28.0-32.0); Mean Corpuscular Hgb Conc. 34.8 g/dL (32.0-36.0); Mean Corpuscular Volume 97.6 fL (80.0-100.0); Monocytes # (auto) 0.4 10 ^3/uL (0-1.3); Monocytes % (auto) 13.5 % (0.0-12.0); Neutrophils # (auto) 1.2 10 ^3/uL (1.6-8.6); Neutrophils % (auto) 42.9 % (37.0-80.0); Nucleated Red Blood Cells % 0.1 %; Red Blood Cells 3.86 10^6/uL (4.5-5.90); Red Cell Distribution Width 13.8 % (11.8-14.3); White Blood Cell 2.9 10^3/uL (4.4-10.8)
[2020-08-25 06:09] LABS: Calcium 8.3 mg/dL (8.5-10.1); Magnesium 2.1 mg/dL (1.6-2.6); Potassium 3.7 mmol/L (3.5-5.1)
[2020-08-25 06:12] LABS: Platelet Count (auto) 131 10^3/uL (140-450)
[2020-08-25 06:18] LABS: BUN/Creatinine Ratio 16.2
[2020-08-25 07:20] VITALS: BP 132/75
== END 2020-08-25 07:25 | disposition home or self-care (01) ==
LOC: ER 02:55
DX: F10.139 Alcohol abuse with withdrawal, unspecified (principal); F17.210 Nicotine dependence, cigarettes, uncomplicated
CPT/HCPCS: 36415; 70450; 80053; 80320; 82550; 83605; 83690; 83735; 85025

== ENCOUNTER 2021-02-11 09:39 | Emergency (ER) | payer MEDICAID ==
[~2021-02-11] VITALS: Ht 170.2 cm; Wt 72.6 kg
[2021-02-11] MEDS ORDERED: LORazepam 2MG/ML-1ML VIAL IV ONE (09:45)
[2021-02-11] MEDS ORDERED: SODIUM CHLORIDE 0.9% 1,000 ML IV ONE (09:45)
[2021-02-11 10:18] LABS: Basophils # (auto) 0 10 ^3/uL (0-0.2); Eosinophils # (auto) 0.1 10 ^3/uL (0-0.8); Lymphocytes # (auto) 1.3 10 ^3/uL (0.4-5.4); Neutrophils # (auto) 2.3 10 ^3/uL (1.6-8.6)
[2021-02-11 10:20] LABS: Basophils % (auto) 0.5 % (0.0-2.0); Eosinophils % (auto) 1.4 % (0.0-7.0); Hematocrit 31.4 % (41.0-53.0); Lymphocytes % (auto) 29.8 % (10.0-50.0); Mean Corpuscular Hemoglobin 39.2 pg (28.0-32.0); Mean Corpuscular Hgb Conc. 35.1 g/dL (32.0-36.0); Mean Corpuscular Volume 111.7 fL (80.0-100.0); Monocytes # (auto) 0.6 10 ^3/uL (0-1.3); Monocytes % (auto) 14.9 % (0.0-12.0); Neutrophils % (auto) 53.4 % (37.0-80.0); Red Blood Cells 2.81 10^6/uL (4.5-5.90); White Blood Cell 4.3 10^3/uL (4.4-10.8)
[2021-02-11 11:03] LABS: Albumin 2.8 g/dL (3.4-5.0); Anion Gap 6 (5-15); Blood Urea Nitrogen 6 mg/dL (7-18); Carbon Dioxide 27 mmol/L (21-32); Chloride 101 mmol/L (98-107); Glucose 88 mg/dL (74-106); Potassium 3.4 mmol/L (3.5-5.1); Sodium 134 mmol/L (136-145)
[2021-02-11 11:10] LABS: Alanine Aminotransferase 69 U/L (16-61); Alkaline Phosphatase 199 U/L (45-117); Aspartate Aminotransferase 178 U/L (15-37); BUN/Creatinine Ratio 10.9; Bilirubin, Total 10.7 mg/dL (0.2-1.0); Blood Alcohol < 3.0 mg/dL (0-5); GFR African American 225 mL/min; GFR Non-African American 186 mL/min; Total Protein 7.2 g/dL (6.4-8.2)
[2021-02-11 12:29] LABS: Alcohol, Urine < 3.0 mg/dL (0-10); Amphetamine Screen, Urine NEGATIVE (NEGATIVE); Barbiturate Scree,Urine NEGATIVE (NEGATIVE); Benzodiazephine Screen, Urine NEGATIVE (NEGATIVE); Cannabinoid Screen, Urine NEGATIVE (NEGATIVE); Cocaine Screen, Urine NEGATIVE (NEGATIVE); Opiate Scree,Urine NEGATIVE (NEGATIVE); Phencyclidine Screen, Urine NEGATIVE (NEGATIVE)
[2021-02-11 14:00] VITALS: BP 111/50
== END 2021-02-11 14:52 | disposition home or self-care (01) ==
LOC: ER 09:39 → EDBD 09:39 → ER 14:52
DX: F10.10 Alcohol abuse, uncomplicated (principal); R07.89 Other chest pain; F20.9 Schizophrenia, unspecified; F17.210 Nicotine dependence, cigarettes, uncomplicated; Y90.0 Blood alcohol level of less than 20 mg/100 ml; Z88.8 Allergy status to other drugs, medicaments and biological substances
CPT/HCPCS: 36415; 71045; 80053; 80307; 80320; 82140; 84484; 85025; 93005; 96361; 96374; 99285; J2060; J7030

== ENCOUNTER 2021-02-23 04:51 | Inpatient (IN) | payer MEDICAID ==
[~2021-02-23] VITALS: Ht 167.6 cm; Wt 57.8 kg
[2021-02-23 05:26] LABS: Basophils # (auto) 0.1 10 ^3/uL (0-0.2); Eosinophils # (auto) 0.1 10 ^3/uL (0-0.8); Hemoglobin 13.5 g/dL (13.5-17.5); Lymphocytes # (auto) 1.7 10 ^3/uL (0.4-5.4); Monocytes # (auto) 0.6 10 ^3/uL (0-1.3); Nucleated Red Blood Cells % 0.2 %
[2021-02-23 05:27] LABS: Basophils % (auto) 0.8 % (0.0-2.0); Eosinophils % (auto) 1.6 % (0.0-7.0); Hematocrit 38.5 % (41.0-53.0); Lymphocytes % (auto) 27.7 % (10.0-50.0); Mean Corpuscular Hemoglobin 38.1 pg (28.0-32.0); Mean Corpuscular Hgb Conc. 35.1 g/dL (32.0-36.0); Mean Corpuscular Volume 108.5 fL (80.0-100.0); Monocytes % (auto) 9.1 % (0.0-12.0); Neutrophils # (auto) 3.8 10 ^3/uL (1.6-8.6); Neutrophils % (auto) 60.8 % (37.0-80.0); Red Blood Cells 3.55 10^6/uL (4.5-5.90); Red Cell Distribution Width 13.4 % (11.8-14.3); White Blood Cell 6.2 10^3/uL (4.4-10.8)
[2021-02-23 05:38] LABS: Albumin 3.1 g/dL (3.4-5.0); Anion Gap 6 (5-15); Blood Alcohol < 3.0 mg/dL (0-5); Blood Urea Nitrogen 6 mg/dL (7-18); Calcium 8.5 mg/dL (8.5-10.1); Carbon Dioxide 25 mmol/L (21-32); Chloride 106 mmol/L (98-107); Glucose 100 mg/dL (74-106); Potassium 3.7 mmol/L (3.5-5.1); Sodium 137 mmol/L (136-145)
[2021-02-23 05:41] LABS: Alanine Aminotransferase 66 U/L (16-61); Alkaline Phosphatase 125 U/L (45-117); Aspartate Aminotransferase 132 U/L (15-37); Bilirubin, Total 4.1 mg/dL (0.2-1.0); GFR African American 179 mL/min; GFR Non-African American 148 mL/min; Total Protein 8.1 g/dL (6.4-8.2)
[2021-02-23] MEDS ORDERED: MORPHINE SULFATE INJECTION 2 MG/ML SYRG IV PRN ×2 (07:15)
[2021-02-23] MEDS ORDERED: METOPROLOL TARTRATE 25 MG TAB PO ONE (07:15)
[2021-02-23] MEDS ORDERED: ONDANSETRON HCL 4 MG/2 ML VIAL IV PRN ×2 (07:15→10:45)
[2021-02-23] MEDS ORDERED: LORazepam 0.5 MG TAB PO PRN (07:15)
[2021-02-23] MEDS ORDERED: NITROGLYCERIN 0.4 MG SL TAB SL PRN (07:15)
[2021-02-23] MEDS ORDERED: METOPROLOL TARTRATE 1MG/1ML-5ML VIAL IV PRN (07:15)
[2021-02-23 09:10] LABS: Urine WBC None Seen /hpf (0 - 3)
[2021-02-23 09:13] LABS: Urine Bacteria NONE SEEN /hpf (None Seen); Urine Blood Negative /uL (Negative); Urine Specific Gravity 1.004 (1.001-1.035)
[2021-02-23 09:31] LABS: Amphetamine Screen, Urine NEGATIVE (NEGATIVE); Barbiturate Scree,Urine NEGATIVE (NEGATIVE); Benzodiazephine Screen, Urine NEGATIVE (NEGATIVE); Cannabinoid Screen, Urine NEGATIVE (NEGATIVE); Cocaine Screen, Urine NEGATIVE (NEGATIVE); Opiate Scree,Urine NEGATIVE (NEGATIVE); Phencyclidine Screen, Urine NEGATIVE (NEGATIVE)
[2021-02-23] MEDS: GABAPENTIN 300 MG CAP PO SCH (10:38)
[2021-02-23] MEDS: MULTIPLE VITAMIN TAB PO SCH (10:38)
[2021-02-23] MEDS: THIAMINE HCL 100 MG TAB PO SCH (10:38)
[2021-02-23] MEDS: FOLIC ACID 1 MG TAB PO SCH (10:38)
[2021-02-23] MEDS ORDERED: DOCUSATE SOD 100 MG CAP PO PRN (10:45)
[2021-02-23] MEDS ORDERED: HYDROcodone-ACET 5/325MG TAB PO PRN (10:45)
[2021-02-23] MEDS ORDERED: TEMAZEPAM 15 MG CAP PO PRN (10:45)
[2021-02-23] MEDS ORDERED: ACETAMINOPHEN 325 MG TAB PO PRN (10:45)
[2021-02-23 17:00] VITALS: BP 103/66
[2021-02-23 17:30] VITALS: BP 103/66
[2021-02-23] MEDS: METOPROLOL TARTRATE 25 MG TAB PO SCH (21:15)
[2021-02-23 21:31] VITALS: BP 105/53
[2021-02-23] MEDS ORDERED: ZOLPIDEM TARTRATE 5 MG TAB PO PRN (22:00)
[2021-02-24 04:30] VITALS: BP 121/71
[2021-02-24 05:36] LABS: Basophils # (auto) 0 10 ^3/uL (0-0.2); Basophils % (auto) 0.7 % (0.0-2.0); Eosinophils # (auto) 0.1 10 ^3/uL (0-0.8); Hemoglobin 12.4 g/dL (13.5-17.5); Monocytes # (auto) 0.4 10 ^3/uL (0-1.3); Nucleated Red Blood Cells % 0.1 %
[2021-02-24 05:39] LABS: Eosinophils % (auto) 2.1 % (0.0-7.0); Hematocrit 34.5 % (41.0-53.0); Lymphocytes # (auto) 1.2 10 ^3/uL (0.4-5.4); Lymphocytes % (auto) 33.7 % (10.0-50.0); Mean Corpuscular Hemoglobin 38.7 pg (28.0-32.0); Mean Corpuscular Hgb Conc. 35.8 g/dL (32.0-36.0); Mean Corpuscular Volume 108.1 fL (80.0-100.0); Monocytes % (auto) 11.9 % (0.0-12.0); Neutrophils # (auto) 1.9 10 ^3/uL (1.6-8.6); Neutrophils % (auto) 51.6 % (37.0-80.0); Red Blood Cells 3.19 10^6/uL (4.5-5.90); Red Cell Distribution Width 13.5 % (11.8-14.3); White Blood Cell 3.7 10^3/uL (4.4-10.8)
[2021-02-24 05:50] LABS: Potassium 3.7 mmol/L (3.5-5.1)
[2021-02-24 05:59] LABS: Albumin 2.5 g/dL (3.4-5.0); BUN/Creatinine Ratio 7.8; Bilirubin, Total 3.2 mg/dL (0.2-1.0); Calcium 8.1 mg/dL (8.5-10.1); Magnesium 2.1 mg/dL (1.6-2.6); Total Protein 6.8 g/dL (6.4-8.2)
[2021-02-24 08:47] VITALS: BP 102/69
[2021-02-24] MEDS: METOPROLOL TARTRATE 25 MG TAB PO SCH ×3 (10:00→21:29)
[2021-02-24] MEDS: FOLIC ACID 1 MG TAB PO SCH (10:25)
[2021-02-24] MEDS: MULTIPLE VITAMIN TAB PO SCH (10:25)
[2021-02-24] MEDS: GABAPENTIN 300 MG CAP PO SCH (10:25)
[2021-02-24] MEDS: THIAMINE HCL 100 MG TAB PO SCH (10:25)
[2021-02-24 13:00] VITALS: BP 113/71
[2021-02-24] MEDS ORDERED: clonazePAM 0.5 MG TAB PO PRN (13:30)
[2021-02-24 17:00] VITALS: BP 92/58
[2021-02-24 22:00] VITALS: BP 98/52
[2021-02-25 05:00] VITALS: BP 104/51
[2021-02-25 05:42] LABS: Basophils # (auto) 0 10 ^3/uL (0-0.2); Eosinophils # (auto) 0.1 10 ^3/uL (0-0.8); Hemoglobin 12.6 g/dL (13.5-17.5); Lymphocytes # (auto) 1.1 10 ^3/uL (0.4-5.4); Monocytes # (auto) 0.3 10 ^3/uL (0-1.3); Nucleated Red Blood Cells % 0.1 %; White Blood Cell 3.2 10^3/uL (4.4-10.8)
[2021-02-25 05:44] LABS: Basophils % (auto) 0.9 % (0.0-2.0); Eosinophils % (auto) 2.6 % (0.0-7.0); Hematocrit 35.3 % (41.0-53.0); Lymphocytes % (auto) 35.2 % (10.0-50.0); Mean Corpuscular Hemoglobin 38.5 pg (28.0-32.0); Mean Corpuscular Hgb Conc. 35.7 g/dL (32.0-36.0); Monocytes % (auto) 10.7 % (0.0-12.0); Neutrophils # (auto) 1.6 10 ^3/uL (1.6-8.6); Neutrophils % (auto) 50.6 % (37.0-80.0); Red Blood Cells 3.27 10^6/uL (4.5-5.90); Red Cell Distribution Width 13.4 % (11.8-14.3)
[2021-02-25 05:57] LABS: Potassium 3.6 mmol/L (3.5-5.1)
[2021-02-25 06:02] LABS: Albumin 2.7 g/dL (3.4-5.0); BUN/Creatinine Ratio 10.3; Calcium 8.6 mg/dL (8.5-10.1); Magnesium 1.8 mg/dL (1.6-2.6)
[2021-02-25 06:04] LABS: Bilirubin, Total 2.8 mg/dL (0.2-1.0); Total Protein 6.8 g/dL (6.4-8.2)
[2021-02-25 08:38] VITALS: BP 104/62
[2021-02-25] MEDS: FOLIC ACID 1 MG TAB PO SCH (09:49)
[2021-02-25] MEDS: MULTIPLE VITAMIN TAB PO SCH (09:50)
[2021-02-25] MEDS: GABAPENTIN 300 MG CAP PO SCH (09:50)
[2021-02-25] MEDS: THIAMINE HCL 100 MG TAB PO SCH (09:50)
[2021-02-25] MEDS: METOPROLOL TARTRATE 25 MG TAB PO SCH (09:50)
[2021-02-25 13:29] VITALS: BP 102/57
[2021-02-25 16:17] VITALS: BP 104/53
[2021-02-25 18:48] VITALS: BP 109/56
== END 2021-02-25 19:25 | disposition home or self-care (01) | DRG 201 ==
LOC: ER 04:51 → TELE 07:02 → TELE-CENTR 15:28
PROVIDERS: ADMIT Internal Medicine; ATTEND Nurse Practitioner
DX: I48.91 Unspecified atrial fibrillation (principal); F20.9 Schizophrenia, unspecified; K76.0 Fatty (change of) liver, not elsewhere classified; F10.139 Alcohol abuse with withdrawal, unspecified; F41.9 Anxiety disorder, unspecified; F32.9 Major depressive disorder, single episode, unspecified; F17.210 Nicotine dependence, cigarettes, uncomplicated; R00.1 Bradycardia, unspecified; Z20.822 Contact with and (suspected) exposure to COVID-19; Z83.3 Family history of diabetes mellitus
CPT/HCPCS: 36415; 80053; 80307; 80320; 81001; 83735; 83880; 84443; 84484; 85025; 87081; 87426; 93005; 93306; G0378

== ENCOUNTER 2022-11-11 15:13 | Inpatient (IN) | payer MEDICAID ==
[~2022-11-11] VITALS: Ht 165.1 cm; Wt 80.0 kg
[2022-11-11 16:01] LABS: Basophils # (auto) 0 10 ^3/uL (0-0.2); Eosinophils # (auto) 0.2 10 ^3/uL (0-0.8); Monocytes # (auto) 0.4 10 ^3/uL (0-1.3)
[2022-11-11 16:03] LABS: Basophils % (auto) 0.5 % (0.0-2.0); Eosinophils % (auto) 3.4 % (0.0-7.0); Hematocrit 33.1 % (41.0-53.0); Hemoglobin 11.6 g/dL (13.5-17.5); Lymphocytes # (auto) 3.3 10 ^3/uL (0.4-5.4); Lymphocytes % (auto) 52.2 % (10.0-50.0); Mean Corpuscular Hemoglobin 34.1 pg (28.0-32.0); Mean Corpuscular Hgb Conc. 35.1 g/dL (32.0-36.0); Mean Corpuscular Volume 97.2 fL (80.0-100.0); Monocytes % (auto) 6.5 % (0.0-12.0); Neutrophils # (auto) 2.4 10 ^3/uL (1.6-8.6); Neutrophils % (auto) 37.4 % (37.0-80.0); Nucleated Red Blood Cells % 0.7 %; Red Cell Distribution Width 14.1 % (11.8-14.3); White Blood Cell 6.4 10^3/uL (4.4-10.8)
[2022-11-11 16:20] LABS: Albumin 3.2 g/dL (3.4-5.0); Calcium 8.6 mg/dL (8.5-10.1); Magnesium 2.2 mg/dL (1.6-2.6); Potassium 3.9 mmol/L (3.5-5.1)
[2022-11-11 16:21] LABS: Acetaminophen < 2.0 ug/mL (10-30)
[2022-11-11 16:28] LABS: Bilirubin, Total 2.1 mg/dL (0.2-1.0); Total Protein 6.3 g/dL (6.4-8.2)
[2022-11-11 16:32] LABS: Salicylate < 1.7 mg/dL (2.8-20.0)
[2022-11-11 16:55] LABS: BUN/Creatinine Ratio 6.9 (10.0-20.0)
[2022-11-11] MEDS ORDERED: FOLIC ACID 1 MG TAB PO ONE (17:00)
[2022-11-11] MEDS ORDERED: D5W/SOD CHLO 0.9% 1,000 ML IV ONE (17:00)
[2022-11-11] MEDS ORDERED: THIAMINE 100mg/ml INJ (200mg/2ml VIAL) IV ONE (17:00)
[2022-11-11 19:06] LABS: Urine Bacteria FEW /hpf (None Seen); Urine Blood Negative /uL (Negative); Urine Specific Gravity 1.007 (1.001-1.035); Urine WBC 1 /hpf (0 - 3)
[2022-11-11 19:30] LABS: Amphetamine Screen, Urine NEGATIVE (NEGATIVE); Barbiturate Scree,Urine NEGATIVE (NEGATIVE); Benzodiazephine Screen, Urine NEGATIVE (NEGATIVE); Cannabinoid Screen, Urine NEGATIVE (NEGATIVE)
[2022-11-11] MEDS ORDERED: NITROGLYCERIN 0.4 MG SL TAB SL PRN (19:30)
[2022-11-11] MEDS ORDERED: MORPHINE SULFATE INJ 2 MG/ml SYRG IV PRN (19:30)
[2022-11-11 19:37] LABS: Cocaine Screen, Urine NEGATIVE (NEGATIVE); Opiate Scree,Urine NEGATIVE (NEGATIVE); Phencyclidine Screen, Urine NEGATIVE (NEGATIVE)
[2022-11-11] MEDS ORDERED: LORazepam 2MG/ML-1ML VIAL IV PRN (19:45)
[2022-11-11] MEDS ORDERED: PANTOPRAZOLE 40 MG/10 ML VIAL INJ IV ONE (19:45)
[2022-11-11 21:30] LABS: INR 1.2 (0.9-1.15); Partial Thromboplastin Time 35.6 sec (24.6-33.4)
[2022-11-11] MEDS ORDERED: LORazepam 2MG/ML-1ML VIAL IM ONE (23:00)
[2022-11-11] MEDS ORDERED: diphenhdrAMINE HCL 50 MG/1 ML VL IM ONE (23:00)
[2022-11-12 06:00] VITALS: BP 112/64
[2022-11-12 08:53] LABS: Potassium 3.9 mmol/L (3.5-5.1)
[2022-11-12 08:54] LABS: Albumin 2.8 g/dL (3.4-5.0); BUN/Creatinine Ratio 8.5 (10.0-20.0); Bilirubin, Total 1.9 mg/dL (0.2-1.0); Calcium 8.3 mg/dL (8.5-10.1)
[2022-11-12] MEDS ORDERED: PANTOPRAZOLE 40 MG/10 ML VIAL INJ IV SCH (10:00)
[2022-11-12] MEDS ORDERED: FOLIC ACID 1 MG, MULTIPLE VITAMIN 10 ML, MAGNESIUM SULF SDV 50% 8 MEQ, THIAMINE INJ 100... INJ SCH ×5 (12:00)
== END 2022-11-12 08:17 | disposition left against medical advice (07) | DRG 52 ==
LOC: ER 15:13 → EDBD 15:13 → TELE 19:19
PROVIDERS: ADMIT Nurse Practitioner Family; ATTEND Nurse Practitioner Family
DX: G92.8 Other toxic encephalopathy (principal); F10.121 Alcohol abuse with intoxication delirium; F17.210 Nicotine dependence, cigarettes, uncomplicated; F31.9 Bipolar disorder, unspecified; F20.9 Schizophrenia, unspecified; D64.9 Anemia, unspecified; Z83.3 Family history of diabetes mellitus
CPT/HCPCS: 36415; 70450; 71045; 72125; 80053; 80307; 80320; 80329; 81001; 82140; 82550; 83735; 83880; 83930; 85025; 85610; 85730; 96372; 96374; 96375; C9113; G0378

== ENCOUNTER 2022-11-19 12:33 | Emergency (ER) | payer SELFPAY ==
[~2022-11-19] VITALS: Ht 170.2 cm; Wt 68.1 kg
[2022-11-19] MEDS ORDERED: SODIUM CHLORIDE 0.9% 1,000 ML IV ONE (13:00)
[2022-11-19 13:08] VITALS: BP 124/69
== END 2022-11-19 13:07 | disposition left against medical advice (07) ==
LOC: EDUNIT# 12:33 → ER 12:33 → EDBD 12:33 → ER 13:07
DX: F10.129 Alcohol abuse with intoxication, unspecified (principal)

== ENCOUNTER 2022-11-20 23:04 | Inpatient (IN) | payer MEDICAID ==
[~2022-11-20] VITALS: Ht 170.2 cm; Wt 86.1 kg
[2022-11-20] MEDS ORDERED: PANTOPRAZOLE 40mg/50ML NS AE 50 ML IV ONE (23:30)
[2022-11-20] MEDS ORDERED: cefTRIAXone 1GM/50ML D5W 50 ML IV ONE (23:30)
[2022-11-20] MEDS ORDERED: PANTOPRAZOLE 80 MG in SODIUM CHL 0.9% 100 ML IV ONE (23:30)
[2022-11-20] MEDS ORDERED: OCTREOTIDE ACETATE 500 MCG in SODIUM CHL 0.9% 99 ML IV SCH (23:45)
[2022-11-20] MEDS ORDERED: OCTREOTIDE ACETATE 100 MCG/ML VL IV ONE (23:45)
[2022-11-20 23:55] LABS: Basophils # (auto) 0 10 ^3/uL (0-0.2); Eosinophils # (auto) 0 10 ^3/uL (0-0.8); Eosinophils % (auto) 0.1 % (0.0-7.0); Monocytes # (auto) 0.8 10 ^3/uL (0-1.3); Nucleated Red Blood Cells % 0.1 %
[2022-11-20 23:57] LABS: Basophils % (auto) 0.4 % (0.0-2.0); Hematocrit 13.4 % (41.0-53.0); Lymphocytes # (auto) 1.2 10 ^3/uL (0.4-5.4); Lymphocytes % (auto) 15.5 % (10.0-50.0); Mean Corpuscular Hemoglobin 36.4 pg (28.0-32.0); Mean Corpuscular Volume 103.9 fL (80.0-100.0); Monocytes % (auto) 9.8 % (0.0-12.0); Neutrophils # (auto) 5.8 10 ^3/uL (1.6-8.6); Neutrophils % (auto) 74.2 % (37.0-80.0); Red Blood Cells 1.29 10^6/uL (4.5-5.90); Red Cell Distribution Width 15.4 % (11.8-14.3); White Blood Cell 7.8 10^3/uL (4.4-10.8)
[2022-11-21] VITALS (87 sets, daily range): BP systolic 85–225; BP diastolic 32–90
[2022-11-21 00:05] LABS: Albumin 2.3 g/dL (3.4-5.0); Calcium 7.5 mg/dL (8.5-10.1); Magnesium 1.5 mg/dL (1.6-2.6); Potassium 4.5 mmol/L (3.5-5.1)
[2022-11-21 00:13] LABS: Hemoglobin 4.7 g/dL (13.5-17.5)
[2022-11-21 00:23] LABS: INR 1.9 (0.9-1.15); Partial Thromboplastin Time 32.6 sec (24.6-33.4)
[2022-11-21 00:33] LABS: Blood Alcohol 354.5 mg/dL (0-5)
[2022-11-21] MEDS ORDERED: OCTREOTIDE ACETATE 100 MCG/ML VL IV ONE (01:00)
[2022-11-21] MEDS ORDERED: PANTOPRAZOLE 80 MG in SODIUM CHL 0.9% 100 ML IV ONE (01:00)
[2022-11-21] MEDS ORDERED: cefTRIAXone 1GM/50ML D5W 50 ML IV ONE (01:00)
[2022-11-21] MEDS ORDERED: ETOMIDATE (2MG/ML) 20ML VIAL IV ONE (01:26)
[2022-11-21] MEDS ORDERED: ROCURONIUM 10MG/ML 10ML VIAL IV ONE ×2 (01:26→04:00)
[2022-11-21] MEDS ORDERED: MIDAZOLAM DRIP 50 mg/50mL 50 ML IV ONE (01:30)
[2022-11-21] MEDS: MIDAZOLAM DRIP 50 mg/50mL 50 ML IV SCH ×6 (01:30→23:20)
[2022-11-21] MEDS ORDERED: PROPOFOL 100 ML IV ONE (01:47)
[2022-11-21] MEDS: PROPOFOL 100 ML IV SCH ×3 (01:52→23:19)
[2022-11-21] MEDS ORDERED: PANTOPRAZOLE 40 MG/10 ML VIAL INJ IV ONE (03:09)
[2022-11-21] MEDS ORDERED: OCTREOTIDE ACETATE 500 MCG/ML VL ONE (03:10)
[2022-11-21] MEDS ORDERED: OCTREOTIDE ACETATE 100 MCG/ML VL ONE (03:10)
[2022-11-21] MEDS ORDERED: NITROGLYCERIN 0.4 MG SL TAB SL PRN (03:15)
[2022-11-21] MEDS ORDERED: MORPHINE SULFATE INJ 2 MG/ml SYRG IV PRN (03:15)
[2022-11-21] MEDS: OCTREOTIDE ACETATE 500 MCG in SODIUM CHL 0.9% 99 ML IV SCH ×3 (03:29→23:18)
[2022-11-21] MEDS: PANTOPRAZOLE 40mg/50ML NS AE 50 ML IV SCH ×5 (04:17→23:17)
[2022-11-21] MEDS ORDERED: SODIUM BICARBONATE 8.4 % INJ 50ML VIAL IV ONE (04:30)
[2022-11-21] MEDS: NOREPINEPHRINE 8 MG/250ML KIT 250 ML IV SCH (05:40)
[2022-11-21 07:21] LABS: Albumin 2.2 g/dL (3.4-5.0); Calcium 7.2 mg/dL (8.5-10.1); Potassium 4.6 mmol/L (3.5-5.1)
[2022-11-21 07:26] LABS: BUN/Creatinine Ratio 19.6 (10.0-20.0); Bilirubin, Total 5.8 mg/dL (0.2-1.0); Total Protein 4.4 g/dL (6.4-8.2)
[2022-11-21 08:22] LABS: Hemoglobin 7.4 g/dL (13.5-17.5); White Blood Cell 5.1 10^3/uL (4.4-10.8)
[2022-11-21 08:24] LABS: Basophils # (auto) 0 10 ^3/uL (0-0.2); Basophils % (auto) 0.4 % (0.0-2.0); Eosinophils # (auto) 0 10 ^3/uL (0-0.8); Eosinophils % (auto) 0.1 % (0.0-7.0); Hematocrit 20.5 % (41.0-53.0); Lymphocytes # (auto) 1.7 10 ^3/uL (0.4-5.4); Lymphocytes % (auto) 33.6 % (10.0-50.0); Mean Corpuscular Hemoglobin 33.5 pg (28.0-32.0); Mean Corpuscular Hgb Conc. 36.1 g/dL (32.0-36.0); Mean Corpuscular Volume 92.8 fL (80.0-100.0); Monocytes # (auto) 0.5 10 ^3/uL (0-1.3); Monocytes % (auto) 10.1 % (0.0-12.0); Neutrophils # (auto) 2.8 10 ^3/uL (1.6-8.6); Neutrophils % (auto) 55.8 % (37.0-80.0); Nucleated Red Blood Cells % 0.2 %; Red Blood Cells 2.21 10^6/uL (4.5-5.90); Red Cell Distribution Width 14.5 % (11.8-14.3)
[2022-11-21 12:42] LABS: Basophils # (auto) 0 10 ^3/uL (0-0.2); Basophils % (auto) 0.6 % (0.0-2.0); Eosinophils # (auto) 0 10 ^3/uL (0-0.8); Eosinophils % (auto) 0.7 % (0.0-7.0); Lymphocytes # (auto) 1.7 10 ^3/uL (0.4-5.4); Monocytes # (auto) 0.4 10 ^3/uL (0-1.3); Nucleated Red Blood Cells % 0.2 %; White Blood Cell 4.9 10^3/uL (4.4-10.8)
[2022-11-21 12:44] LABS: Hematocrit 23.5 % (41.0-53.0); Hemoglobin 8.2 g/dL (13.5-17.5); Lymphocytes % (auto) 34.6 % (10.0-50.0); Mean Corpuscular Hemoglobin 32.8 pg (28.0-32.0); Mean Corpuscular Hgb Conc. 35.2 g/dL (32.0-36.0); Mean Corpuscular Volume 93.4 fL (80.0-100.0); Monocytes % (auto) 8.2 % (0.0-12.0); Neutrophils # (auto) 2.7 10 ^3/uL (1.6-8.6); Neutrophils % (auto) 55.9 % (37.0-80.0); Red Blood Cells 2.51 10^6/uL (4.5-5.90)
[2022-11-21] MEDS: SODIUM CHLORIDE 0.9% 1,000 ML IV SCH (12:48)
[2022-11-21 13:41] LABS: INR 1.67 (0.9-1.15)
[2022-11-21] MEDS ORDERED: LORazepam 2MG/ML-1ML VIAL IV PRN (16:15)
[2022-11-21] MEDS: FOLIC ACID 1 MG, MULTIPLE VITAMIN 10 ML, MAGNESIUM SULF SDV 50% 8 MEQ, THIAMINE INJ 100... INJ SCH ×5 (18:11)
[2022-11-21] MEDS ORDERED: ACETAMINOPHEN 325 MG TAB PO PRN (19:00)
[2022-11-21 19:11] LABS: Lymphocytes % (auto) 25.1 % (10.0-50.0); Neutrophils % (auto) 60.4 % (37.0-80.0)
[2022-11-21 19:12] LABS: Eosinophils % (auto) 0.7 % (0.0-7.0)
[2022-11-21 19:13] LABS: Basophils # (auto) 0 10 ^3/uL (0-0.2); Basophils % (auto) 0.8 % (0.0-2.0); Eosinophils # (auto) 0 10 ^3/uL (0-0.8); Lymphocytes # (auto) 1.3 10 ^3/uL (0.4-5.4); Monocytes # (auto) 0.7 10 ^3/uL (0-1.3)
[2022-11-21 19:14] LABS: Hematocrit 26.7 % (41.0-53.0); Hemoglobin 9.2 g/dL (13.5-17.5); Mean Corpuscular Hemoglobin 32.4 pg (28.0-32.0); Mean Corpuscular Hgb Conc. 34.6 g/dL (32.0-36.0); Mean Corpuscular Volume 93.7 fL (80.0-100.0); Red Blood Cells 2.85 10^6/uL (4.5-5.90); Red Cell Distribution Width 15.7 % (11.8-14.3)
[2022-11-21] MEDS: fentaNYL Drip 2500mCg/250mlNS 250 ML IV SCH (19:32)
[2022-11-21] MEDS ORDERED: phytonadione 10 MG in SODIUM CHL 0.9% 50 ML IV ONE (20:45)
[2022-11-22] VITALS (110 sets, daily range): BP systolic 86–113; BP diastolic 45–67
[2022-11-22 01:03] LABS: Basophils # (auto) 0 10 ^3/uL (0-0.2); Eosinophils # (auto) 0 10 ^3/uL (0-0.8); Hematocrit 21.8 % (41.0-53.0); Hemoglobin 7.8 g/dL (13.5-17.5); Mean Corpuscular Hemoglobin 33.8 pg (28.0-32.0); Monocytes # (auto) 0.4 10 ^3/uL (0-1.3); Nucleated Red Blood Cells % 0.1 %; Red Blood Cells 2.31 10^6/uL (4.5-5.90)
[2022-11-22 01:05] LABS: Basophils % (auto) 0.3 % (0.0-2.0); Eosinophils % (auto) 0.9 % (0.0-7.0); Lymphocytes % (auto) 24.9 % (10.0-50.0); Mean Corpuscular Hgb Conc. 35.8 g/dL (32.0-36.0); Mean Corpuscular Volume 94.4 fL (80.0-100.0); Monocytes % (auto) 9.7 % (0.0-12.0); Neutrophils # (auto) 2.7 10 ^3/uL (1.6-8.6); Neutrophils % (auto) 64.2 % (37.0-80.0); Red Cell Distribution Width 15.5 % (11.8-14.3); White Blood Cell 4.2 10^3/uL (4.4-10.8)
[2022-11-22] MEDS: NOREPINEPHRINE 8 MG/250ML KIT 250 ML IV SCH ×2 (03:30→23:34)
[2022-11-22 04:09] LABS: Basophils # (auto) 0 10 ^3/uL (0-0.2); Basophils % (auto) 0.3 % (0.0-2.0); Eosinophils # (auto) 0.1 10 ^3/uL (0-0.8); Eosinophils % (auto) 1.1 % (0.0-7.0); Hematocrit 21.5 % (41.0-53.0); Hemoglobin 7.6 g/dL (13.5-17.5); Lymphocytes # (auto) 1.2 10 ^3/uL (0.4-5.4); Lymphocytes % (auto) 27.7 % (10.0-50.0); Mean Corpuscular Hemoglobin 33.1 pg (28.0-32.0); Mean Corpuscular Hgb Conc. 35.5 g/dL (32.0-36.0); Mean Corpuscular Volume 93.2 fL (80.0-100.0); Monocytes # (auto) 0.4 10 ^3/uL (0-1.3); Monocytes % (auto) 9.4 % (0.0-12.0); Neutrophils # (auto) 2.7 10 ^3/uL (1.6-8.6); Neutrophils % (auto) 61.5 % (37.0-80.0); Nucleated Red Blood Cells % 0.2 %; Red Cell Distribution Width 15.9 % (11.8-14.3); White Blood Cell 4.4 10^3/uL (4.4-10.8)
[2022-11-22 04:32] LABS: Albumin 1.9 g/dL (3.4-5.0); Calcium 6.6 mg/dL (8.5-10.1); Potassium 3.7 mmol/L (3.5-5.1)
[2022-11-22 04:34] LABS: BUN/Creatinine Ratio 25.4 (10.0-20.0)
[2022-11-22 04:37] LABS: Bilirubin, Total 3.1 mg/dL (0.2-1.0); Total Protein 4.4 g/dL (6.4-8.2)
[2022-11-22] MEDS: PANTOPRAZOLE 40mg/50ML NS AE 50 ML IV SCH ×4 (05:10→21:40)
[2022-11-22] MEDS: PROPOFOL 100 ML IV SCH ×3 (05:11→23:35)
[2022-11-22] MEDS: SODIUM CHLORIDE 0.9% 1,000 ML IV SCH (06:31)
[2022-11-22] MEDS: MIDAZOLAM DRIP 50 mg/50mL 50 ML IV SCH ×2 (08:41→21:48)
[2022-11-22] MEDS: OCTREOTIDE ACETATE 500 MCG in SODIUM CHL 0.9% 99 ML IV SCH ×2 (10:00→19:55)
[2022-11-22] MEDS: FOLIC ACID 1 MG, MULTIPLE VITAMIN 10 ML, MAGNESIUM SULF SDV 50% 8 MEQ, THIAMINE INJ 100... INJ SCH ×5 (12:16)
[2022-11-22 13:47] LABS: Basophils # (auto) 0 10 ^3/uL (0-0.2); Basophils % (auto) 0.4 % (0.0-2.0); Eosinophils # (auto) 0.1 10 ^3/uL (0-0.8); Eosinophils % (auto) 2.4 % (0.0-7.0); Lymphocytes # (auto) 1.1 10 ^3/uL (0.4-5.4); Monocytes # (auto) 0.2 10 ^3/uL (0-1.3); Red Blood Cells 2.39 10^6/uL (4.5-5.90); White Blood Cell 3.4 10^3/uL (4.4-10.8)
[2022-11-22 13:49] LABS: Hematocrit 22.7 % (41.0-53.0); Lymphocytes % (auto) 31.3 % (10.0-50.0); Mean Corpuscular Hemoglobin 33.4 pg (28.0-32.0); Mean Corpuscular Hgb Conc. 35.1 g/dL (32.0-36.0); Monocytes % (auto) 6.3 % (0.0-12.0); Neutrophils % (auto) 59.6 % (37.0-80.0); Nucleated Red Blood Cells % 0.3 %; Red Cell Distribution Width 16.1 % (11.8-14.3)
[2022-11-22 16:35] LABS: INR 1.42 (0.9-1.15); Partial Thromboplastin Time 36.2 sec (24.6-33.4)
[2022-11-22] MEDS ORDERED: ROCURONIUM 10MG/ML 10ML VIAL IV ONE ×2 (16:40→16:45)
[2022-11-22] MEDS: fentaNYL Drip 2500mCg/250mlNS 250 ML IV SCH ×2 (18:45→20:41)
[2022-11-22] MEDS: SUCRALFATE 1 GM/10 ML ORAL SUSP PO SCH (21:41)
[2022-11-22 22:18] LABS: Hematocrit 20.6 % (41.0-53.0); Hemoglobin 7.2 g/dL (13.5-17.5); Mean Corpuscular Hemoglobin 33.1 pg (28.0-32.0); Mean Corpuscular Volume 94.4 fL (80.0-100.0); Red Blood Cells 2.18 10^6/uL (4.5-5.90)
[2022-11-22 22:19] LABS: Mean Corpuscular Hgb Conc. 35.1 g/dL (32.0-36.0); Red Cell Distribution Width 16.1 % (11.8-14.3)
[2022-11-22 22:21] LABS: Band Neutrophils % (manual) 0; Basophils % (manual) 0 (0.0-2.0); Blast Cells 0; Eosinophils % (manual) 3 (0-7); Lymphocytes % (manual) 28 (10.0-50.0); Metamyelocytes % 0; Myelocytes % 0; Promyelocytes % 0; Reactive Lymphocytes 0
[2022-11-22 22:22] LABS: Monocytes % (manual) 6 (0-12)
[2022-11-23] VITALS (95 sets, daily range): BP systolic 94–122; BP diastolic 44–64
[2022-11-23] MEDS: PANTOPRAZOLE 40mg/50ML NS AE 50 ML IV SCH ×5 (02:55→19:49)
[2022-11-23] MEDS: MIDAZOLAM DRIP 50 mg/50mL 50 ML IV SCH ×3 (02:56→20:30)
[2022-11-23] MEDS: SODIUM CHLORIDE 0.9% 1,000 ML IV SCH (02:57)
[2022-11-23 04:32] LABS: Basophils # (auto) 0 10 ^3/uL (0-0.2); Eosinophils # (auto) 0.1 10 ^3/uL (0-0.8); Hemoglobin 7.6 g/dL (13.5-17.5); Lymphocytes # (auto) 0.9 10 ^3/uL (0.4-5.4); Monocytes # (auto) 0.2 10 ^3/uL (0-1.3); Neutrophils % (auto) 63.4 % (37.0-80.0); Red Cell Distribution Width 16.2 % (11.8-14.3)
[2022-11-23 04:35] LABS: Basophils % (auto) 0.5 % (0.0-2.0); Eosinophils % (auto) 2.8 % (0.0-7.0); Hematocrit 21.2 % (41.0-53.0); Lymphocytes % (auto) 27.7 % (10.0-50.0); Mean Corpuscular Hemoglobin 33.7 pg (28.0-32.0); Mean Corpuscular Hgb Conc. 35.6 g/dL (32.0-36.0); Mean Corpuscular Volume 94.8 fL (80.0-100.0); Monocytes % (auto) 5.6 % (0.0-12.0); Red Blood Cells 2.24 10^6/uL (4.5-5.90); White Blood Cell 3.1 10^3/uL (4.4-10.8)
[2022-11-23 04:59] LABS: Potassium 3.4 mmol/L (3.5-5.1)
[2022-11-23 05:07] LABS: Albumin 2.1 g/dL (3.4-5.0); BUN/Creatinine Ratio 22.8 (10.0-20.0); Bilirubin, Total 3.3 mg/dL (0.2-1.0); Calcium 7.2 mg/dL (8.5-10.1); Total Protein 4.5 g/dL (6.4-8.2)
[2022-11-23] MEDS: SUCRALFATE 1 GM/10 ML ORAL SUSP PO SCH ×4 (06:08→21:59)
[2022-11-23] MEDS: OCTREOTIDE ACETATE 500 MCG in SODIUM CHL 0.9% 99 ML IV SCH ×2 (06:08→16:15)
[2022-11-23] MEDS: PROPOFOL 100 ML IV SCH ×2 (06:48→20:30)
[2022-11-23] MEDS ORDERED: SODIUM CHLORIDE 0.9% 1,000 ML IV SCH ×2 (08:00→15:15)
[2022-11-23] MEDS ORDERED: POTASSIUM CHL 20MEQ/100ML 100 ML IV ONE (08:00)
[2022-11-23] MEDS: FOLIC ACID 1 MG, MULTIPLE VITAMIN 10 ML, MAGNESIUM SULF SDV 50% 8 MEQ, THIAMINE INJ 100... INJ SCH ×5 (10:22)
[2022-11-23 10:27] LABS: Basophils # (auto) 0 10 ^3/uL (0-0.2); Eosinophils # (auto) 0.1 10 ^3/uL (0-0.8); Lymphocytes # (auto) 1.1 10 ^3/uL (0.4-5.4); Mean Corpuscular Volume 96.8 fL (80.0-100.0); Nucleated Red Blood Cells % 0.2 %
[2022-11-23 10:28] LABS: Basophils % (auto) 0.5 % (0.0-2.0); Eosinophils % (auto) 1.9 % (0.0-7.0); Hematocrit 23.2 % (41.0-53.0); Lymphocytes % (auto) 23.1 % (10.0-50.0); Mean Corpuscular Hemoglobin 33.3 pg (28.0-32.0); Mean Corpuscular Hgb Conc. 34.4 g/dL (32.0-36.0); Monocytes # (auto) 0.7 10 ^3/uL (0-1.3); Monocytes % (auto) 15.7 % (0.0-12.0); Neutrophils # (auto) 2.7 10 ^3/uL (1.6-8.6); Neutrophils % (auto) 58.8 % (37.0-80.0); Red Cell Distribution Width 16.8 % (11.8-14.3); White Blood Cell 4.6 10^3/uL (4.4-10.8)
[2022-11-23 17:34] LABS: White Blood Cell 4.1 10^3/uL (4.4-10.8)
[2022-11-23 17:37] LABS: Hematocrit 21.2 % (41.0-53.0); Hemoglobin 7.4 g/dL (13.5-17.5); Mean Corpuscular Hemoglobin 33.2 pg (28.0-32.0); Mean Corpuscular Hgb Conc. 34.9 g/dL (32.0-36.0); Mean Corpuscular Volume 95.2 fL (80.0-100.0); Red Blood Cells 2.23 10^6/uL (4.5-5.90)
[2022-11-23 17:38] LABS: Red Cell Distribution Width 16.4 % (11.8-14.3)
[2022-11-23 17:39] LABS: Band Neutrophils % (manual) 3; Basophils % (manual) 0 (0.0-2.0); Blast Cells 0; Eosinophils % (manual) 3 (0-7); Lymphocytes % (manual) 22 (10.0-50.0); Metamyelocytes % 0; Monocytes % (manual) 7 (0-12); Myelocytes % 0; Promyelocytes % 0; Reactive Lymphocytes 0
[2022-11-24] VITALS (108 sets, daily range): BP systolic 77–115; BP diastolic 30–67
[2022-11-24] MEDS: MIDAZOLAM DRIP 50 mg/50mL 50 ML IV SCH ×4 (00:33→18:09)
[2022-11-24] MEDS: PANTOPRAZOLE 40mg/50ML NS AE 50 ML IV SCH ×5 (01:02→22:24)
[2022-11-24] MEDS: OCTREOTIDE ACETATE 500 MCG in SODIUM CHL 0.9% 99 ML IV SCH ×3 (01:03→18:18)
[2022-11-24 03:52] LABS: Basophils # (auto) 0 10 ^3/uL (0-0.2); Eosinophils # (auto) 0.1 10 ^3/uL (0-0.8); Hemoglobin 7.4 g/dL (13.5-17.5); Monocytes # (auto) 0.6 10 ^3/uL (0-1.3)
[2022-11-24 03:53] LABS: Basophils % (auto) 0.5 % (0.0-2.0); Eosinophils % (auto) 1.8 % (0.0-7.0); Hematocrit 21.2 % (41.0-53.0); Lymphocytes % (auto) 18.6 % (10.0-50.0); Mean Corpuscular Hemoglobin 33.8 pg (28.0-32.0); Mean Corpuscular Hgb Conc. 34.6 g/dL (32.0-36.0); Mean Corpuscular Volume 97.7 fL (80.0-100.0); Monocytes % (auto) 10.6 % (0.0-12.0); Neutrophils # (auto) 3.6 10 ^3/uL (1.6-8.6); Neutrophils % (auto) 68.5 % (37.0-80.0); Nucleated Red Blood Cells % 0.3 %; Red Blood Cells 2.17 10^6/uL (4.5-5.90); Red Cell Distribution Width 16.9 % (11.8-14.3); White Blood Cell 5.2 10^3/uL (4.4-10.8)
[2022-11-24] MEDS: NOREPINEPHRINE 8 MG/250ML KIT 250 ML IV SCH ×2 (04:04→15:33)
[2022-11-24] MEDS: PROPOFOL 100 ML IV SCH ×3 (04:05→18:05)
[2022-11-24 04:11] LABS: Albumin 1.9 g/dL (3.4-5.0); Calcium 7.2 mg/dL (8.5-10.1)
[2022-11-24 04:14] LABS: BUN/Creatinine Ratio 21.3 (10.0-20.0); Bilirubin, Total 4.8 mg/dL (0.2-1.0); Total Protein 4.3 g/dL (6.4-8.2)
[2022-11-24] MEDS: SUCRALFATE 1 GM/10 ML ORAL SUSP PO SCH ×4 (05:50→22:24)
[2022-11-24] MEDS: SODIUM CHLORIDE 0.9% 1,000 ML IV SCH (14:58)
[2022-11-24] MEDS: FOLIC ACID 1 MG, MULTIPLE VITAMIN 10 ML, MAGNESIUM SULF SDV 50% 8 MEQ, THIAMINE INJ 100... INJ SCH ×5 (15:21)
[2022-11-24] MEDS: ALBUMIN 25% 50 ML IV SCH ×2 (15:45→16:50)
[2022-11-24] MEDS: fentaNYL Drip 2500mCg/250mlNS 250 ML IV SCH (16:49)
[2022-11-24 22:44] LABS: Hematocrit 20.6 % (41.0-53.0); Hemoglobin 7.1 g/dL (13.5-17.5); Mean Corpuscular Hemoglobin 34.2 pg (28.0-32.0); Mean Corpuscular Hgb Conc. 34.4 g/dL (32.0-36.0); Mean Corpuscular Volume 99.5 fL (80.0-100.0); Red Blood Cells 2.07 10^6/uL (4.5-5.90); Red Cell Distribution Width 18.2 % (11.8-14.3); White Blood Cell 3.9 10^3/uL (4.4-10.8)
[2022-11-24 22:56] LABS: Basophils % (manual) 0 (0.0-2.0); Blast Cells 0; Metamyelocytes % 0; Myelocytes % 0; Promyelocytes % 0; Reactive Lymphocytes 0
[2022-11-25] VITALS (108 sets, daily range): BP systolic 75–118; BP diastolic 32–68
[2022-11-25 00:46] LABS: Band Neutrophils % (manual) 17; Eosinophils % (manual) 2 (0-7); Lymphocytes % (manual) 16 (10.0-50.0); Monocytes % (manual) 6 (0-12)
[2022-11-25] MEDS: LACTULOSE 20Gm/30ML SOLN PO SCH ×4 (01:04→17:19)
[2022-11-25] MEDS: SODIUM CHLORIDE 0.9% 1,000 ML IV SCH ×2 (01:04→07:15)
[2022-11-25] MEDS: PROPOFOL 100 ML IV SCH ×3 (02:48→17:19)
[2022-11-25] MEDS: ALBUMIN 25% 50 ML IV SCH (02:56)
[2022-11-25] MEDS: SUCRALFATE 1 GM/10 ML ORAL SUSP PO SCH ×4 (05:45→21:29)
[2022-11-25] MEDS: PANTOPRAZOLE 40mg/50ML NS AE 50 ML IV SCH ×5 (05:45→21:29)
[2022-11-25 06:19] LABS: Hematocrit 23.7 % (41.0-53.0); Hemoglobin 8.2 g/dL (13.5-17.5); Mean Corpuscular Hemoglobin 32.8 pg (28.0-32.0); Mean Corpuscular Hgb Conc. 34.4 g/dL (32.0-36.0); Mean Corpuscular Volume 95.1 fL (80.0-100.0); Red Blood Cells 2.49 10^6/uL (4.5-5.90); Red Cell Distribution Width 19.2 % (11.8-14.3); White Blood Cell 3.4 10^3/uL (4.4-10.8)
[2022-11-25 06:51] LABS: Basophils % (manual) 0 (0.0-2.0); Blast Cells 0; Metamyelocytes % 0; Myelocytes % 0; Promyelocytes % 0; Reactive Lymphocytes 0
[2022-11-25 06:59] LABS: Potassium 3.9 mmol/L (3.5-5.1)
[2022-11-25 07:06] LABS: Albumin 2.4 g/dL (3.4-5.0); BUN/Creatinine Ratio 20.3 (10.0-20.0)
[2022-11-25 07:08] LABS: Bilirubin, Total 8.1 mg/dL (0.2-1.0); Total Protein 5.1 g/dL (6.4-8.2)
[2022-11-25 07:55] LABS: Band Neutrophils % (manual) 34; Eosinophils % (manual) 3 (0-7); Lymphocytes % (manual) 15 (10.0-50.0); Monocytes % (manual) 21 (0-12)
[2022-11-25] MEDS: MIDAZOLAM DRIP 50 mg/50mL 50 ML IV SCH ×3 (08:00→21:29)
[2022-11-25] MEDS: NOREPINEPHRINE 8 MG/250ML KIT 250 ML IV SCH ×2 (08:19→17:20)
[2022-11-25 09:48] LABS: Hematocrit 23.5 % (41.0-53.0); Red Blood Cells 2.48 10^6/uL (4.5-5.90); White Blood Cell 2.6 10^3/uL (4.4-10.8)
[2022-11-25 09:50] LABS: Hemoglobin 8.1 g/dL (13.5-17.5); Mean Corpuscular Hemoglobin 32.5 pg (28.0-32.0); Mean Corpuscular Hgb Conc. 34.3 g/dL (32.0-36.0); Mean Corpuscular Volume 94.8 fL (80.0-100.0); Red Cell Distribution Width 19.7 % (11.8-14.3)
[2022-11-25 10:55] LABS: Basophils % (manual) 0 (0.0-2.0); Blast Cells 0; Metamyelocytes % 0; Myelocytes % 0; Promyelocytes % 0; Reactive Lymphocytes 0
[2022-11-25 10:58] LABS: Band Neutrophils % (manual) 35; Eosinophils % (manual) 4 (0-7); Lymphocytes % (manual) 16 (10.0-50.0); Monocytes % (manual) 12 (0-12)
[2022-11-25] MEDS: OCTREOTIDE ACETATE 500 MCG in SODIUM CHL 0.9% 99 ML IV SCH ×2 (12:00→15:35)
[2022-11-25] MEDS ORDERED: SODIUM CHLORIDE 0.9% 1,000 ML IV SCH (12:15)
[2022-11-25] MEDS: FOLIC ACID 1 MG, MULTIPLE VITAMIN 10 ML, MAGNESIUM SULF SDV 50% 8 MEQ, THIAMINE INJ 100... INJ SCH ×5 (13:58)
[2022-11-25] MEDS: fentaNYL Drip 2500mCg/250mlNS 250 ML IV SCH (17:18)
[2022-11-25 18:22] LABS: Urine Bacteria FEW /hpf (None Seen); Urine Blood 1+ /uL (Negative); Urine Mucus FEW (None Seen); Urine WBC 41 /hpf (0 - 3)
[2022-11-25] MEDS: NOREPINEPHRINE BITARTRATE 32 MG in SODIUM CHL 0.9% 218 ML IV SCH (20:28)
[2022-11-25] MEDS ORDERED: NOREPINEPHRINE 8 MG/250ML KIT 250 ML IV ONE (20:28)
[2022-11-25] MEDS ORDERED: NOREPINEPHRINE BITARTRATE 2 ML IV ONE (20:29)
[2022-11-25] MEDS ORDERED: NOREPINEPHRINE 8 MG/250ML KIT 500 ML IV ONE (20:42)
[2022-11-25] MEDS ORDERED: PHENYLEPHRINE IV 250 ML IV ONE (21:17)
[2022-11-25] MEDS ORDERED: PHENYLEPHRINE HCL 10 MG/ML VL ONE (21:17)
[2022-11-25] MEDS: PHENYLEPHRINE INJ 80 MG in SODIUM CHL 0.9% 242 ML IV SCH (21:34)
[2022-11-25 22:29] LABS: White Blood Cell 6.3 10^3/uL (4.4-10.8)
[2022-11-25 22:30] LABS: Hematocrit 24.6 % (41.0-53.0); Hemoglobin 8.4 g/dL (13.5-17.5); Mean Corpuscular Hemoglobin 33.1 pg (28.0-32.0); Mean Corpuscular Volume 97.5 fL (80.0-100.0); Red Blood Cells 2.53 10^6/uL (4.5-5.90); Red Cell Distribution Width 21.3 % (11.8-14.3)
[2022-11-25 22:32] LABS: Basophils % (manual) 0 (0.0-2.0); Blast Cells 0; Metamyelocytes % 0; Myelocytes % 0; Promyelocytes % 0; Reactive Lymphocytes 0
[2022-11-25 23:18] LABS: Band Neutrophils % (manual) 10; Eosinophils % (manual) 1 (0-7); Lymphocytes % (manual) 31 (10.0-50.0); Monocytes % (manual) 13 (0-12)
[2022-11-26] VITALS (106 sets, daily range): BP systolic 71–107; BP diastolic 31–50
[2022-11-26] MEDS: LACTULOSE 20Gm/30ML SOLN PO SCH ×4 (00:33→17:39)
[2022-11-26] MEDS: PANTOPRAZOLE 40mg/50ML NS AE 50 ML IV SCH ×5 (04:27→23:55)
[2022-11-26] MEDS: OCTREOTIDE ACETATE 500 MCG in SODIUM CHL 0.9% 99 ML IV SCH ×3 (04:28→23:53)
[2022-11-26 04:31] LABS: Albumin 2.3 g/dL (3.4-5.0); Calcium 8.3 mg/dL (8.5-10.1); Potassium 4.7 mmol/L (3.5-5.1)
[2022-11-26 04:35] LABS: BUN/Creatinine Ratio 15.1 (10.0-20.0); Bilirubin, Total 11.2 mg/dL (0.2-1.0); Total Protein 4.9 g/dL (6.4-8.2)
[2022-11-26] MEDS: SUCRALFATE 1 GM/10 ML ORAL SUSP PO SCH ×4 (07:00→22:27)
[2022-11-26] MEDS ORDERED: FUROSEMIDE 40 MG/4 ML VIAL IV ONE (08:00)
[2022-11-26] MEDS ORDERED: SODIUM BICARBONATE 50ML VIAL 150 ML in D5W 5% 1,000 ML IV ONE (08:00)
[2022-11-26] MEDS: PHENYLEPHRINE INJ 80 MG in SODIUM CHL 0.9% 242 ML IV SCH ×3 (08:09→23:55)
[2022-11-26] MEDS: MIDAZOLAM DRIP 50 mg/50mL 50 ML IV SCH ×2 (08:09→10:27)
[2022-11-26] MEDS: VASOPRESSIN 20 UNITS in SODIUM CHL 0.9% 99 ML IV SCH ×2 (08:27→17:39)
[2022-11-26] MEDS: ALBUMIN 25% 100 ML IV SCH ×3 (08:48→18:12)
[2022-11-26] MEDS ORDERED: EPINEPHrine HCL 250 ML IV SCH (10:00)
[2022-11-26] MEDS: DOPamine 1600MCG/ML D5W 250 ML IV SCH (10:00)
[2022-11-26] MEDS: FUROSEMIDE INJECTION 100 MG in SODIUM CHL 0.9% 100 ML IV SCH ×2 (10:19→18:14)
[2022-11-26 10:27] LABS: Mean Corpuscular Hemoglobin 31.4 pg (28.0-32.0)
[2022-11-26 10:32] LABS: Hematocrit 29.3 % (41.0-53.0); Hemoglobin 8.6 g/dL (13.5-17.5); Mean Corpuscular Hgb Conc. 29.2 g/dL (32.0-36.0); Mean Corpuscular Volume 107.6 fL (80.0-100.0); Red Blood Cells 2.73 10^6/uL (4.5-5.90); Red Cell Distribution Width 23.6 % (11.8-14.3); White Blood Cell 13.7 10^3/uL (4.4-10.8)
[2022-11-26 10:34] LABS: Basophils % (manual) 0 (0.0-2.0); Blast Cells 0; Eosinophils % (manual) 0 (0-7); Myelocytes % 0; Promyelocytes % 0; Reactive Lymphocytes 0
[2022-11-26 10:53] LABS: Band Neutrophils % (manual) 5; Lymphocytes % (manual) 45 (10.0-50.0); Metamyelocytes % 1; Monocytes % (manual) 13 (0-12)
[2022-11-26] MEDS: EPINEPHrine HCL INJECTION 16 MG in D5W 5% 234 ML IV SCH ×2 (11:00→16:54)
[2022-11-26] MEDS: NOREPINEPHRINE BITARTRATE 32 MG in SODIUM CHL 0.9% 218 ML IV SCH (17:51)
[2022-11-26] MEDS: fentaNYL Drip 2500mCg/250mlNS 250 ML IV SCH (18:45)
[2022-11-26 22:15] LABS: Hemoglobin 7.1 g/dL (13.5-17.5)
[2022-11-26 22:16] LABS: Hematocrit 22.9 % (41.0-53.0); Mean Corpuscular Hemoglobin 32.2 pg (28.0-32.0); Mean Corpuscular Hgb Conc. 30.8 g/dL (32.0-36.0); Mean Corpuscular Volume 104.3 fL (80.0-100.0); Red Blood Cells 2.19 10^6/uL (4.5-5.90); White Blood Cell 24.6 10^3/uL (4.4-10.8)
[2022-11-26 22:50] LABS: Red Cell Distribution Width 22.7 % (11.8-14.3)
[2022-11-26 23:02] LABS: Basophils % (manual) 0 (0.0-2.0); Blast Cells 0; Eosinophils % (manual) 0 (0-7); Metamyelocytes % 0; Myelocytes % 0; Promyelocytes % 0; Reactive Lymphocytes 0
[2022-11-26 23:09] LABS: Band Neutrophils % (manual) 10; Lymphocytes % (manual) 12 (10.0-50.0); Monocytes % (manual) 9 (0-12)
[2022-11-27] VITALS (38 sets, daily range): BP systolic 74–115; BP diastolic 26–55
[2022-11-27] MEDS: ALBUMIN 25% 100 ML IV SCH (00:04)
[2022-11-27] MEDS: PROPOFOL 100 ML IV SCH (01:45)
[2022-11-27] MEDS: DOPamine 1600MCG/ML D5W 250 ML IV SCH (02:54)
[2022-11-27] MEDS: FUROSEMIDE INJECTION 100 MG in SODIUM CHL 0.9% 100 ML IV SCH (04:00)
[2022-11-27 04:23] LABS: Hematocrit 22.8 % (41.0-53.0); Mean Corpuscular Hemoglobin 31.8 pg (28.0-32.0); Mean Corpuscular Hgb Conc. 29.6 g/dL (32.0-36.0); Mean Corpuscular Volume 107.4 fL (80.0-100.0); Red Blood Cells 2.12 10^6/uL (4.5-5.90); White Blood Cell 29.3 10^3/uL (4.4-10.8)
[2022-11-27] MEDS: VASOPRESSIN 20 UNITS in SODIUM CHL 0.9% 99 ML IV SCH (04:46)
[2022-11-27] MEDS: PANTOPRAZOLE 40mg/50ML NS AE 50 ML IV SCH (04:53)
[2022-11-27 04:54] LABS: Red Cell Distribution Width 22.8 % (11.8-14.3)
[2022-11-27 04:57] LABS: Hemoglobin 6.8 g/dL (13.5-17.5)
[2022-11-27 05:03] LABS: Basophils % (manual) 0 (0.0-2.0); Blast Cells 0; Eosinophils % (manual) 0 (0-7); Metamyelocytes % 0; Myelocytes % 0; Promyelocytes % 0; Reactive Lymphocytes 0
[2022-11-27 05:08] LABS: Band Neutrophils % (manual) 3; Lymphocytes % (manual) 26 (10.0-50.0); Monocytes % (manual) 7 (0-12)
[2022-11-27 05:41] LABS: Albumin 3.5 g/dL (3.4-5.0)
[2022-11-27 05:44] LABS: BUN/Creatinine Ratio 10.1 (10.0-20.0); Bilirubin, Total 13.8 mg/dL (0.2-1.0); Total Protein 5.5 g/dL (6.4-8.2)
[2022-11-27] MEDS ORDERED: DEXTROSE 10% 250 ML IV ONE ×2 (05:55→06:00)
[2022-11-27] MEDS: NOREPINEPHRINE BITARTRATE 32 MG in SODIUM CHL 0.9% 218 ML IV SCH (06:04)
[2022-11-27] MEDS ORDERED: InsuLIN REG 1unit/0.01ml Soln (100units/ml) IV ONE (06:30)
[2022-11-27] MEDS ORDERED: SODIUM BICARBONATE 8.4% INJ 50ML SYRINGE IV ONE ×2 (06:30→12:41)
[2022-11-27] MEDS ORDERED: DEXTROSE (50%) 50ML SYRG IV ONE ×2 (06:30)
[2022-11-27] MEDS ORDERED: ALBUTEROL SULF 2.5 MG/0.5ML(0.5%) NEB SOLN NEB ONE (06:30)
[2022-11-27] MEDS ORDERED: CALCIUM GLUC 1,000mg/50ml-NS 50 ML IV ONE (06:30)
[2022-11-27] MEDS ORDERED: SODIUM BICARBONATE 50ML VIAL 150 ML in D5W 5% 1,000 ML IV SCH (06:45)
[2022-11-27] MEDS: PHENYLEPHRINE INJ 80 MG in SODIUM CHL 0.9% 242 ML IV SCH (07:35)
[2022-11-27] MEDS ORDERED: DEXTROSE 10% 1,000 ML IV ONE (07:45)
[2022-11-27] MEDS: DEXTROSE 10% 250 ML IV ONE ×2 (07:55→11:23)
[2022-11-27] MEDS: SUCRALFATE 1 GM/10 ML ORAL SUSP PO SCH (08:15)
[2022-11-27] MEDS: LACTULOSE 20Gm/30ML SOLN PO SCH ×2 (08:15)
[2022-11-27] MEDS ORDERED: SODIUM ZIRCONIUM CYCL 10 GM PAK PO ONE (08:30)
[2022-11-27] MEDS ORDERED: SODIUM BICARBONATE 8.4% INJ 50ML SYRINGE ONE (08:48)
[2022-11-27] MEDS ORDERED: EPINEPHrine HCL 1 MG/10 ML SYRG IV ONE (12:41)
[2022-11-27] MEDS ORDERED: EPOETIN ALFA-EPBX 4,000 UNIT/ML VIAL SC ONE (21:00)
== END 2022-11-27 14:30 | DRG 242 ==
LOC: ER 23:04 → EDBD 23:04 → TELE 11-21 03:12 → ICU WEST 11-21 04:51
PROVIDERS: ADMIT Internal Medicine; ATTEND Internal Medicine
PROC: 5A1955Z Respiratory Ventilation, Greater than 96 Consecutive Hours (ICD-10-PCS; principal; 2022-11-21)
PROC: 30233N1 Transfusion of Nonautologous Red Blood Cells into Peripheral Vein, Percutaneous Approach (ICD-10-PCS; 2022-11-21)
PROC: 0BH17EZ Insertion of Endotracheal Airway into Trachea, Via Natural or Artificial Opening (ICD-10-PCS; 2022-11-21)
PROC: 0DB98ZX Excision of Duodenum, Via Natural or Artificial Opening Endoscopic, Diagnostic (ICD-10-PCS; 2022-11-22)
PROC: 0DB78ZX Excision of Stomach, Pylorus, Via Natural or Artificial Opening Endoscopic, Diagnostic (ICD-10-PCS; 2022-11-22)
PROC: 02HV33Z Insertion of Infusion Device into Superior Vena Cava, Percutaneous Approach (ICD-10-PCS; 2022-11-22)
PROC: B548ZZA Ultrasonography of Superior Vena Cava, Guidance (ICD-10-PCS; 2022-11-22)
PROC: 30233K1 Transfusion of Nonautologous Frozen Plasma into Peripheral Vein, Percutaneous Approach (ICD-10-PCS; 2022-11-22)
PROC: 0W993ZZ Drainage of Right Pleural Cavity, Percutaneous Approach (ICD-10-PCS; 2022-11-25)
PROC: 30233R1 Transfusion of Nonautologous Platelets into Peripheral Vein, Percutaneous Approach (ICD-10-PCS; 2022-11-25)
PROC: 5A12012 Performance of Cardiac Output, Single, Manual (ICD-10-PCS; 2022-11-27)
DX: K22.11 Ulcer of esophagus with bleeding (principal); J96.00 Acute respiratory failure, unspecified whether with hypoxia or hypercapnia; N17.0 Acute kidney failure with tubular necrosis; R57.8 Other shock; R57.1 Hypovolemic shock; D61.818 Other pancytopenia; D62 Acute posthemorrhagic anemia; E87.4 Mixed disorder of acid-base balance; I12.9 Hypertensive chronic kidney disease with stage 1 through stage 4 chronic kidney disease, or unspecified chronic kidney disease; N18.9 Chronic kidney disease, unspecified; I85.10 Secondary esophageal varices without bleeding; D68.9 Coagulation defect, unspecified; K76.6 Portal hypertension; E87.5 Hyperkalemia; K76.82 Hepatic encephalopathy; E87.70 Fluid overload, unspecified; K31.84 Gastroparesis; F10.129 Alcohol abuse with intoxication, unspecified; Y90.9 Presence of alcohol in blood, level not specified; Z88.8 Allergy status to other drugs, medicaments and biological substances
CPT/HCPCS: 31500; 36415; 36556; 36600; 43239; 70450; 71045; 73630; 80053; 80320; 81001; 82140; 82805; 82962; 83735; 85007; 85025; 85027; 85384; 85610; 85730; 86850; 86900; 86901; 86920; 87070; 87081; 87205; 89051; 92950; 93306; 94002; 94003; 96365; 96367; 96375; 99291; A4618; C9113; G0378; J0171; J0696; J2250; J2704; J3430; J3480; J7060; P9047

== ENCOUNTER → 2022-11-20 | Emergency (ER) | payer MEDICAID ==
[~2022-11-20] VITALS: Ht 170.2 cm; Wt 63.0 kg
[2022-11-20 00:56] VITALS: BP 132/96
[2022-11-20 02:07] LABS: Eosinophils # (auto) 0.1 10 ^3/uL (0-0.8); Hemoglobin 11.1 g/dL (13.5-17.5); Lymphocytes # (auto) 2.5 10 ^3/uL (0.4-5.4); Monocytes # (auto) 0.4 10 ^3/uL (0-1.3)
[2022-11-20 02:08] LABS: Basophils # (auto) 0 10 ^3/uL (0-0.2); Basophils % (auto) 0.6 % (0.0-2.0); Eosinophils % (auto) 1.2 % (0.0-7.0); Hematocrit 31.4 % (41.0-53.0); Lymphocytes % (auto) 31.5 % (10.0-50.0); Mean Corpuscular Hgb Conc. 35.2 g/dL (32.0-36.0); Mean Corpuscular Volume 99.2 fL (80.0-100.0); Monocytes % (auto) 4.4 % (0.0-12.0); Neutrophils % (auto) 62.3 % (37.0-80.0); Nucleated Red Blood Cells % 0.2 %; Red Blood Cells 3.17 10^6/uL (4.5-5.90); Red Cell Distribution Width 14.7 % (11.8-14.3)
[2022-11-20 02:25] LABS: Albumin 3.3 g/dL (3.4-5.0); Potassium 3.4 mmol/L (3.5-5.1)
[2022-11-20 02:33] LABS: Bilirubin, Total 2.6 mg/dL (0.2-1.0); Total Protein 7.1 g/dL (6.4-8.2)
[2022-11-20 02:43] LABS: Blood Alcohol 450.7 mg/dL (0-5)
== END | disposition left against medical advice (07) ==
LOC: ER 00:56
DX: R10.84 Generalized abdominal pain (principal); R14.0 Abdominal distension (gaseous); H57.89 Other specified disorders of eye and adnexa; Z53.21 Procedure and treatment not carried out due to patient leaving prior to being seen by health care provider
CPT/HCPCS: 36415; 80053; 80320; 83690; 85025